=== PATIENT | male | born 1970 | race Caucasian/White ===

== ENCOUNTER 2017-11-11 08:29 | Inpatient (IN) | payer MEDICARE ==
[2017-11-11 09:06] VITALS: BMI 21.2
--- NOTE | 2017-11-11 10:57 | HP ---
COWS - Scale Resting Pulse: 0= [place] 80 or Below Sweatin= Chills/Flushing Restless Observation: 1= Difficult to Sit Still Pupil Size: 0= Normal to Room Light Bone or Joint Aches: 2= Severe Diffuse Aches Runny Nose/ Eye Tearin= Nasal Congestion GI Upset > 30mins: 1= Stomach Cramp Tremor Observation: 1= Tremor Gregory, Not Seen Yawning Observation: 1= 1-2x During Session Anxiety or Irritability: 2=Irritable/Anxious Goose Flesh Skin: 3=Piloerection COWS Score: 13 CIWA Score - CIWA Score Nausea/Vomitin-Mild Nausea/No Vomiting Muscle Tremors: 1-None Visible, but Gregory Anxiety: 3 Agitation: 2 Paroxysmal Sweats: 2 Orientation: 0-Oriented Tacttile Disturbances: 1-Very Mild Itch/Numbness Auditory Disturbances: 0-None Visual Disturbances: 0-None Headache: 2-Mild CIWA-Ar Total Score: 12 Admission ROS S - HPI Chief Complaint: Heroin/Etoh withdrawal symptoms. Allergies/Adverse Reactions: Allergies Allergy/AdvReac Type Severity Reaction Status Date / Time No Known Drug Allergies Allergy Unknown Verified 03/16/12 08:50 lactose AdvReac Verified 03/15/12 19:16 History of Present Illness: Patient presents for ETOH/Withdrawal symptoms. Patient started using heroin/ ETOH and Cocaine at age 12. Injects 10 bags of heroin/cocaine daily, drinks 12 beers daily. Last time patient used substances last night. Patient had one episode seizure 2 months. Patient has history of HIV, Hepatitis C which was treated with interferon and depression/anxiety. Denies Si/HI and suicide attempts. Exam Limitations: No Limitations - Ebola screening Have you traveled outside of the country in the last 21 days: No (N) Have you had contact with anyone from an Ebola affected area: No Have you been sick,other than usual withdrawal symptoms: No Do you have a fever: No - Review of Systems Constitutional: Chills, Changes in sleep, Unintentional Wgt. Loss EENT: reports: Nose Congestion Respiratory: reports: No Symptoms reported Cardiac: reports: No Symptoms Reported GI: reports: Diarrhea, Nausea, Poor Fluid Intake, Vomiting : reports: No Symptoms Reported Musculoskeletal: reports: No Symptoms Reported Integumentary: reports: Sweating Neuro: reports: Headache, Numbness, Seizure, Tremors Endocrine: reports: Unexplained Weight Loss Hematology: reports: No Symptoms Reported Psychiatric: reports: Orientated x3, Anxious, Depressed Patient History - Patient Medical History Hx Anemia: No (sec to [facility] rx) Hx Asthma: No Hx Chronic Obstructive Pulmonary Disease (COPD): No Hx Cancer: No Hx Cardiac Disorders: No Hx Congestive Heart Failure: No Hx Hypertension: No Hx Hypercholesterolemia: No Hx Pacemaker: No HX Cerebrovascular Accident: No Hx Seizures: Yes (seizure in 2004 and 2017) Hx Dementia: No Hx Diabetes: No Hx Gastrointestinal Disorders: No Hx Liver Disease: Yes (chronic hep b, treated for hep c) Hx Genitourinary Disorders: No Hx Sexually Transmitted Disorders: No Hx Renal Disease (ESRD): No Hx Thyroid Disease: Yes (hyperthyroidism) Hx Human Immunodeficiency Virus (HIV): Yes (noncompliant with medication) Hx Hepatitis C: Yes (completed 48 wks peginf/riba with svr) Hx Depression: Yes (anxiety) Hx Suicide Attempt: No Hx Bipolar Disorder: No Hx Schizophrenia: No - Patient Surgical History Past Surgical History: Yes Hx Neurologic Surgery: No Hx Cataract Extraction: No Hx Cardiac Surgery: No Hx Lung Surgery: No Hx Breast Surgery: No Hx Breast Biopsy: No Hx Abdominal Surgery: Yes (hernia repair 1996) Hx Appendectomy: No Hx Cholecystectomy: No Hx Genitourinary Surgery: No Hx Orthopedic Surgery: No Other Surgical History: corneal transplantation x 3,legally blind,post trauma Anesthesia Reaction: No - PPD History Previous Implant?: Yes Documented Results: Negative w/o proof Date: 12/08/12 PPD to be Administered?: Yes - Smoking Cessation Smoking history: Current every day smoker Have you smoked in the past 12 months: Yes Aproximately how many cigarettes per day: 20 Cigars Per Day: 0 Hx Chewing Tobacco Use: No Initiated information on smoking cessation: Yes 'Breaking Loose' booklet given: 11/11/17 - Substance & Tx. History Hx Alcohol Use: Yes Hx Substance Use: Yes Substance Use Type: Alcohol, Cocaine, Heroin Hx Substance Use Treatment: Yes ([facility] 2012) - Substances Abused Cocaine Route: Injection Frequency: Daily Amount used: 10 bags Age of first use: 12 Date of Last Use: 11/11/17 Heroin Route: Injection Frequency: Daily Amount used: 10 bags Age of first use: 12 Date of Last Use: 11/11/17 Alcohol Route: Oral Frequency: Daily Amount used: 12 beers Age of first use: 12 Date of Last Use: 11/11/17 Family Disease History - Family Disease History Family Disease History: Diabetes: Mother, Heart Disease: Mother, Other: Father ( AIDS, ) Admission Physical Exam [facility] - Vital Signs Vital Signs: Vital Signs - 24 hr 11/11/17 09:04 Temperature 96.7 F L Pulse Rate 69 Respiratory 18 Rate Blood Pressure 127/89 - Physical General Appearance: Yes: Disheveled, Thin, Tremorous, Sweating, Anxious HEENTM: Yes: Hearing grossly Normal, Normal ENT Inspection, Normocephalic, Normal Voice, JUDITH (Right eye legally blind, Left eye normal), Pharynx Normal Respiratory: Yes: Chest Non-Tender, Lungs Clear, Normal Breath Sounds, No Respiratory Distress, No Accessory Muscle Use Neck: Yes: No masses,lesions,Nodules, Supple, Trachea in good position Breast: Yes: Breast Exam Deferred Cardiology: Yes: Regular Rhythm, Regular Rate, S1, S2 Abdominal: Yes: Normal Bowel Sounds, Non Tender, Flat, Soft Genitourinary: Yes: Within Normal Limits Back: Yes: Muscle Spasm Extremities: Yes: Normal Range of Motion, Non-Tender, Tremors Neurological: Yes: glass smoother II-XII NML intact, Fully Oriented, Alert, Motor Strength 5/5, Depressed Affect Integumentary: Yes: Normal Color, Warm, Moist, Track [place] Lymphatic: Yes: Within Normal Limits - Diagnostic (1) Opioid dependence with withdrawal Current Visit: Yes Status: Acute (2) Cocaine dependence Current Visit: Yes Status: Acute Qualifiers: Substance use status: uncomplicated Qualified Code(s): F14.20 - Cocaine dependence, uncomplicated (3) Alcohol dependence with uncomplicated withdrawal Current Visit: Yes Status: Acute (4) Acquired immune deficiency syndrome (AIDS) Current Visit: Yes Status: Chronic (5) Hepatitis C carrier Current Visit: Yes Status: Chronic (6) Weight decreased Current Visit: Yes Status: Active (7) anxiety and depression Current Visit: Yes Status: Suspected Cleared for Admission [facility] - Detox or Rehab [facility] Level of Care: Medically Managed Detox Regimen/Protocol: Methadone/Librium [facility] Breath Alcohol Content Breath Alcohol Content: 0 Urine Drug Screen - Results Drug Screen Negative: No Urine Drug Screen Results: SEGUNDO-Cocaine, OPI-Opiates, TCA-Tricyclic Antidepress
[2017-11-11] MEDS ORDERED: MAGNESIUM HYDROX 2400MG/30ML ORAL SUSPENSION 30 ML CUP PO PRN (11:22)
[2017-11-11] MEDS ORDERED: MAGNESIUM CITRATE 300 ML BOTTLE PO PRN (11:22)
[2017-11-11] MEDS ORDERED: LOPERAMIDE HCL 2 MG CAPSULE PO PRN (11:22)
[2017-11-11] MEDS ORDERED: P-EPHED 60MG/TRIPROLIDI 2.5MG TABLET PO PRN (11:22)
[2017-11-11] MEDS ORDERED: MENTHOL/PHENOL 1 EACH UD MM PRN (11:22)
[2017-11-11] MEDS ORDERED: ACETAMINOPHEN 325 MG TABLET (FP) PO PRN (11:22)
[2017-11-11] MEDS ORDERED: guaiFENesin/D-METHORPHAN HB 10 ML UNIT-DOSE CUPS PO PRN (11:22)
[2017-11-11] MEDS ORDERED: NICOTINE POLACRILEX 2 MG GUM BUC PRN (11:22)
[2017-11-11] MEDS ORDERED: MAG HYDROX/AL HYDROX/SIMETH 30 ML UNIT-DOSE CUP PO PRN (11:22)
[2017-11-11] MEDS ORDERED: IBUPROFEN 400 MG TABLET (FP) PO PRN (11:22)
[2017-11-11] MEDS ORDERED: METHADONE HCL 10 MG TABLET (FOR DETOX USE ONLY) PO ONE ×2 (12:10→23:00)
[2017-11-11] MEDS ORDERED: chlordiazePOXIDE HCL 25 MG CAPSULE PO ONE (12:15)
--- NOTE | 2017-11-11 14:36 | CONSULT ---
[facility] Psychiatric Consult - Data Date of interview: 11/11/17 Admission source: [facility] Identifying data: Patient is a 48 year old single male, father of one, living with partner and is supported by SSI benefits. This is patient's first admission to detox. Pt. admitted for alcohol, cocaine, and opiate dependence. Substance Abuse History: - Smoking Cessation. Smoking history: Current every day smoker. Have you smoked in the past 12 months: Yes. Aproximately how many cigarettes per day: 20. Cigars Per Day: 0. Hx Chewing Tobacco Use: No. Initiated information on smoking cessation: Yes. 'Breaking Loose' booklet given : 11/11/17. - Substance & Tx. History. Hx Alcohol Use: Yes. Hx Substance Use : Yes. Substance Use Type: Alcohol, Cocaine, Heroin. Hx Substance Use Treatment: Yes ([facility] 2012). - Substances Abused. Cocaine. Route: Injection. Frequency: Daily. Amount used: 10 bags. Age of first use: 12. Date of Last Use: 11/11/17. Heroin. Route: Injection. Frequency: Daily. Amount used: 10 bags. Age of first use: 12. Date of Last Use: 11/11/17. Alcohol. Route: Oral. Frequency: Daily. Amount used: 12 beers. Age of first use: 12 Medical History: Seizures, Hep B, Hep C (treated) Psychiatric History: Patient denies h/o psychiatric hospitalization, and suicide attempt. Pt. reports OPD approximately 5 years ago at [place]. States he was prescribed trazodone but was noncompliant with the medication regime. Pt. c/o poor sleep and is requesting benadryl 50mg. Physical/Sexual Abuse/Trauma History: Denies. Mental Status Exam - Mental Status Exam Alert and Oriented to: Time, Place, Person Cognitive Function: Good Patient Appearance: Unkempt Mood: Hopeful Affect: Mood Congruent Patient Behavior: Cooperative Speech Pattern: Appropriate Voice Loudness: Normal Thought Process: Intact Thought Disorder: Not Present Hallucinations: Denies Suicidal Ideation: Denies Homicidal Ideation: Denies Insight/Judgement: Poor Sleep: Poorly Appetite: Fair Muscle strength/Tone: Normal Gait/Station: Normal Psychiatric Findings - Problem List (Irene 1, 2,3) (1) Insomnia Current Visit: Yes Status: Acute (2) Alcohol dependence with uncomplicated withdrawal Current Visit: Yes Status: Acute (3) Cocaine dependence Current Visit: Yes Status: Acute Qualifiers: Substance use status: uncomplicated Qualified Code(s): F14.20 - Cocaine dependence, uncomplicated (4) Opioid dependence with withdrawal Current Visit: Yes Status: Acute (5) Substance induced mood disorder Current Visit: Yes Status: Suspected - Initial Treatment Plan Initial Treatment Plan: Psychoeducation provided. Detoxification in progress. Benadryl 50mg qhs for insomnia. Benefits and side effects discussed. Verbal consent given. Will continue to monitor.
[2017-11-11] MEDS: chlordiazePOXIDE HCL 25 MG CAPSULE PO SCH ×2 (17:22→22:27)
[2017-11-11 17:52] LABS: URINE APPEARANCE CLEAR; URINE BILIRUBIN NEGATIVE (<2.0 mg/dL); URINE BLOOD NEGATIVE (NEGATIVE); URINE COLOR YELLOW; URINE GLUCOSE (UA) 1+ (NEGATIVE); URINE KETONE NEGATIVE (NEGATIVE); URINE LEUK ESTERASE NEGATIVE (NEGATIVE); URINE NITRITE NEGATIVE (NEGATIVE); URINE PROTEIN NEGATIVE (NEGATIVE); URINE UROBILINOGEN 4.0 E.U/dl mg/dL (0.2-1.0)
[2017-11-11] MEDS: hydrOXYzine PAMOATE 50 MG CAPSULE (FP) PO PRN (20:35)
[2017-11-11] MEDS: chlordiazePOXIDE HCL 25 MG CAPSULE PO PRN (20:35)
[2017-11-11] MEDS ORDERED: MELATONIN 5 MG TABLETS PO PRN (22:00)
[2017-11-11] MEDS ORDERED: diphenhydrAMINE HCL 25 MG CAPSULE (FP) PO ONE (22:02)
[2017-11-11] MEDS: THIAMINE HCL 100 MG TABLET (FP) PO SCH (22:26)
[2017-11-11] MEDS: diphenhydrAMINE HCL 50 MG CAPSULE PO PRN (22:27)
[2017-11-12] MEDS: chlordiazePOXIDE HCL 25 MG CAPSULE PO SCH ×4 (05:50→22:32)
[2017-11-12] MEDS ORDERED: METHADONE HCL 10 MG TABLET (FOR DETOX USE ONLY) PO SCH (10:00)
[2017-11-12] MEDS: PRENATAL VITAMINS W/ FOLIC ACID TABLET (FP) PO SCH (10:09)
[2017-11-12] MEDS: NICOTINE 21 MG/24 HOURS TOPICAL PATCH TD SCH (10:11)
--- NOTE | 2017-11-12 14:51 | EKG ---
Test Reason : Blood Pressure : / mmHG Vent. Rate : 063 BPM Atrial Rate : 063 BPM P-R Int : 188 ms QRS Dur : 100 ms QT Int : 430 ms P-R-T Axes : 060 074 071 degrees QTc Int : 440 ms NORMAL SINUS RHYTHM INCOMPLETE RIGHT BUNDLE BRANCH BLOCK BORDERLINE ECG WHEN COMPARED WITH ECG OF 22-OCT-2008 11:05, NO SIGNIFICANT CHANGE WAS FOUND Confirmed by MD Terrance, Clement ([id number]) on 11/12/2017 2:51:06 PM Referred By: Confirmed By:Clement Carlos MD
[2017-11-12] MEDS ORDERED: TRIMETHOBENZAMIDE HCL 200MG/2ML INJ IM PRN (15:05)
[2017-11-12] MEDS: chlordiazePOXIDE HCL 25 MG CAPSULE PO PRN (15:37)
--- NOTE | 2017-11-12 17:15 | PN ---
S CIWA - CIWA Score Nausea/Vomitin Muscle Tremors: 3 Anxiety: 4-Mod. Anxious/Guarded Agitation: 2 Paroxysmal Sweats: 3 Orientation: 0-Oriented Tacttile Disturbances: 2-Mild Itch/Numbness/Burn Auditory Disturbances: 0-None Visual Disturbances: 2-Mild Sensitivity Headache: 0-None Present CIWA-Ar Total Score: 19 BHS COWS - Scale Resting Pulse: 1= [place] 81-100 Sweatin= Chills/Flushing Restless Observation: 1= Difficult to Sit Still Pupil Size: 0= Normal to Room Light Bone or Joint Aches: 0= None Runny Nose/ Eye Tearin= Nasal Congestion GI Upset > 30mins: 2= Nausea/Diarrhea Tremor Observation of Outstretched Hands: 2= Slight Tremor Visible Yawning Observation: 1= 1-2x During Session Anxiety or Irritability: 2=Irritable/Anxious Goose Flesh Skin: 3=Piloerection COWS Score: 14 S Progress Note (SOAP) Subjective: Nausea, Diarrhea, Sweating, Tremors. Objective: PATIENT A & O X 3, OBSERVED AMBULATING ON UNIT. NO ACUTE DISTRESS. 11/12/17 17:13 Vital Signs Temperature 97.5 F L 11/12/17 14:14 Pulse Rate 83 11/12/17 14:14 Respiratory Rate 20 11/12/17 14:14 Blood Pressure 114/74 11/12/17 14:14 O2 Sat by Pulse Oximetry (%) Laboratory Tests 11/11/17 14:00 Urine Color Yellow Urine Appearance Clear Urine pH 7.0 D Ur Specific [place] 1.024 Urine Protein Negative Urine Glucose (UA) 1+ H Urine Ketones Negative Urine Blood Negative Urine Nitrite Negative Urine Bilirubin Negative Urine Urobilinogen 4.0 e.u/dl Ur Leukocyte Esterase Negative UA RESULTS NOTED. CBC, CMP, RPR RESULTS PENDING. 11/12/17 17:14 Assessment: 11/12/17 17:14 WITHDRAWAL SYMPTOMS. Plan: CONTINUE DETOX. INCREASE DAILY PO FLUID INTAKE. PRN FLEXERIL FOR BODY ACHES / MUSCLE SPASMS.
[2017-11-12] MEDS ORDERED: diphenhydrAMINE HCL 25 MG CAPSULE (FP) PO ONE (19:48)
[2017-11-12] MEDS: THIAMINE HCL 100 MG TABLET (FP) PO SCH (22:32)
[2017-11-12] MEDS: CYCLOBENZAPRINE HCL 10 MG TABLET (FP) PO PRN (22:32)
[2017-11-12] MEDS: diphenhydrAMINE HCL 50 MG CAPSULE PO PRN (22:33)
[2017-11-13] MEDS: hydrOXYzine PAMOATE 50 MG CAPSULE (FP) PO PRN (02:28)
[2017-11-13] MEDS: chlordiazePOXIDE HCL 25 MG CAPSULE PO PRN (02:28)
[2017-11-13] MEDS: chlordiazePOXIDE HCL 25 MG CAPSULE PO SCH ×2 (05:28→10:05)
[2017-11-13] MEDS: CYCLOBENZAPRINE HCL 10 MG TABLET (FP) PO PRN (05:28)
[2017-11-13 09:58] VITALS: BP 103/71; PULSE 80; TEMP 96.4
[2017-11-13] MEDS ORDERED: METHADONE HCL 5 MG TABLET (FOR DETOX USE ONLY) PO SCH (10:00)
[2017-11-13 10:01] LABS: HEMATOCRIT 38.1 % (35.4-49); HEMOGLOBIN 12.8 GM/dL (11.7-16.9); MCH 30.7 pg (25.7-33.7); MCHC 33.6 g/dl (32.0-35.9); MEAN CELL VOLUME 91.3 fl (80-96); MEAN PLT VOLUME 9.3 fl (7.5-11.1); PLATELET COUNT 261 K/MM3 (134-434); RBC 4.17 M/mm3 (4.00-5.60); RDW 15.5 % (11.9-15.9); WHITE BLOOD COUNT 7.7 K/mm3 (4.0-10.0)
[2017-11-13] MEDS: PRENATAL VITAMINS W/ FOLIC ACID TABLET (FP) PO SCH (10:05)
[2017-11-13] MEDS: NICOTINE 21 MG/24 HOURS TOPICAL PATCH TD SCH (10:06)
[2017-11-13 10:25] LABS: CHLORIDE 105 mmol/L (98-107); POTASSIUM 4.1 mmol/L (3.5-5.1); SODIUM 139 mmol/L (136-145)
[2017-11-13 10:46] LABS: ALBUMIN 2.9 g/dl (3.4-5.0); ALK PHOS 94 U/L (45-117); ANION GAP 7 (8-16); BILIRUBIN,TOTAL 0.2 mg/dL (0.2-1.0); BLOOD UREA NITROGEN 16 mg/dL (7-18); CALCIUM 8.5 mg/dL (8.5-10.1); CO2 27 mmol/L (21-32); CREATININE 0.7 mg/dL (0.7-1.3); GLUCOSE,RANDOM 83 mg/dL (74-106); SGOT/AST 23 U/L (15-37); SGPT/ALT 24 U/L (12-78); TOT PROT 7.4 g/dl (6.4-8.2)
--- NOTE | 2017-11-13 14:02 | PN ---
[facility] Progress Note Note: PT DECLINED TO CONTINUE WITH DETOX STATING "FAMILY ISSUES". ALL EFFORTS TO ENCOURAGE PAIENT TO FOCUS ON TREATMENT WAS UNSUCCESSFUL. ALERT O X 3. AMBULATING WITH STAEDY GAIT. NAD. PT REPORTS HIS PRIMARY CARE IS AT [facility] , [address] BUT HAS NOT FOLLOWED UP WITH TREATMENT FOR A LONG TIME. PT REMINDED TO FOLLOWUP WITH PRIMARY CARE NEEDED AT [facility]. Vital Signs 11/13/17 11/13/17 06:19 09:57 Temperature 96.1 F L 96.4 F L Pulse Rate 87 80 Respiratory 18 20 Rate Blood Pressure 123/72 103/71 Laboratory Tests 11/11/17 11/13/17 11/13/17 14:00 07:50 07:50 WBC 7.7 D RBC 4.17 Hgb 12.8 Hct 38.1 MCV 91.3 MCH 30.7 MCHC 33.6 RDW 15.5 D Plt Count 261 D MPV 9.3 Sodium 139 Potassium 4.1 Chloride 105 Carbon Dioxide 27 Anion Gap 7 L BUN 16 Creatinine 0.7 Creat Clearance w eGFR > 60 Random Glucose 83 D Calcium 8.5 Total Bilirubin 0.2 D AST 23 ALT 24 Alkaline Phosphatase 94 Total Protein 7.4 Albumin 2.9 L D Urine Color Yellow Urine Appearance Clear Urine pH 7.0 D Ur Specific [place] 1.024 Urine Protein Negative Urine Glucose (UA) 1+ H Urine Ketones Negative Urine Blood Negative Urine Nitrite Negative Urine Bilirubin Negative Urine Urobilinogen 4.0 e.u/dl Ur Leukocyte Esterase Negative RPR Titer 11/13/17 07:50 WBC RBC Hgb Hct MCV MCH MCHC RDW Plt Count MPV Sodium Potassium Chloride Carbon Dioxide Anion Gap BUN Creatinine Creat Clearance w eGFR Random Glucose Calcium Total Bilirubin AST ALT Alkaline Phosphatase Total Protein Albumin Urine Color Urine Appearance Urine pH Ur Specific [place] Urine Protein Urine Glucose (UA) Urine Ketones Urine Blood Urine Nitrite Urine Bilirubin Urine Urobilinogen Ur Leukocyte Esterase RPR Titer Nonreactive PT SIGNED OUT AMA.
--- NOTE | 2017-11-13 14:05 | DS ---
[facility] Detox Discharge Summary Admission Date: 11/11/17 Discharge Date: 11/13/17 - History Present History: Alcohol Dependence, Cocaine Dependence Additional Comments: PT DECLINED TO CONTINUE DETOX. PT REMINDED TO GO BACK TO HIS PRIMARY [facility] AT [address] [place] [address] FOR MEDICAL MANAGEMENT OF HIS COMORBID CONDITIONS NEEDED. Pertinent Past History: PLEASE SEE DX BELOW - Physical Exam Results Vital Signs: Vital Signs Temperature 96.4 F L 11/13/17 09:57 Pulse Rate 80 11/13/17 09:57 Respiratory Rate 20 11/13/17 09:57 Blood Pressure 103/71 11/13/17 09:57 O2 Sat by Pulse Oximetry (%) Pertinent Admission Physical Exam Findings: WITHDRAWAL SX Laboratory Tests 11/11/17 11/13/17 11/13/17 14:00 07:50 07:50 WBC 7.7 D RBC 4.17 Hgb 12.8 Hct 38.1 MCV 91.3 MCH 30.7 MCHC 33.6 RDW 15.5 D Plt Count 261 D MPV 9.3 Sodium 139 Potassium 4.1 Chloride 105 Carbon Dioxide 27 Anion Gap 7 L BUN 16 Creatinine 0.7 Creat Clearance w eGFR > 60 Random Glucose 83 D Calcium 8.5 Total Bilirubin 0.2 D AST 23 ALT 24 Alkaline Phosphatase 94 Total Protein 7.4 Albumin 2.9 L D Urine Color Yellow Urine Appearance Clear Urine pH 7.0 D Ur Specific [place] 1.024 Urine Protein Negative Urine Glucose (UA) 1+ H Urine Ketones Negative Urine Blood Negative Urine Nitrite Negative Urine Bilirubin Negative Urine Urobilinogen 4.0 e.u/dl Ur Leukocyte Esterase Negative RPR Titer 11/13/17 07:50 WBC RBC Hgb Hct MCV MCH MCHC RDW Plt Count MPV Sodium Potassium Chloride Carbon Dioxide Anion Gap BUN Creatinine Creat Clearance w eGFR Random Glucose Calcium Total Bilirubin AST ALT Alkaline Phosphatase Total Protein Albumin Urine Color Urine Appearance Urine pH Ur Specific [place] Urine Protein Urine Glucose (UA) Urine Ketones Urine Blood Urine Nitrite Urine Bilirubin Urine Urobilinogen Ur Leukocyte Esterase RPR Titer Nonreactive - Treatment Hospital Course: Discharged Condition Good - Medication Discharge Medications: Ambulatory Orders NK [No Known Home Medication] 11/11/17 - AMA Did Patient Leave Against Medical Advice: Yes (AMA)
[2017-11-13] MEDS ORDERED: chlordiazePOXIDE 5 MG CAPSULE PO SCH (17:00)
--- NOTE | 2017-11-14 09:06 | EKG ---
Test Reason : Blood Pressure : / mmHG Vent. Rate : 072 BPM Atrial Rate : 072 BPM P-R Int : 186 ms QRS Dur : 102 ms QT Int : 390 ms P-R-T Axes : 081 077 073 degrees QTc Int : 427 ms NORMAL SINUS RHYTHM INCOMPLETE RIGHT BUNDLE BRANCH BLOCK BORDERLINE ECG WHEN COMPARED WITH ECG OF 11-NOV-2017 12:20, NO SIGNIFICANT CHANGE WAS FOUND Confirmed by MALIHA OTOOLE MD ([id number]) on 11/14/2017 9:06:15 AM Referred By: Confirmed By:MALIHA OTOOLE MD
[2017-11-14] MEDS ORDERED: chlordiazePOXIDE HCL 10 MG CAPSULE PO SCH (17:00)
[2017-11-15] MEDS ORDERED: METHADONE HCL 10 MG TABLET (FOR DETOX USE ONLY) PO SCH (10:00)
[2017-11-16] MEDS ORDERED: METHADONE HCL 5 MG TABLET (FOR DETOX USE ONLY) PO SCH (06:00)
== END 2017-11-13 11:00 | disposition left against medical advice (07) | DRG 770 ==
LOC: YASAS 08:29 → Y3N 12:00
PROVIDERS: ADMIT Surgery; ATTEND Surgery
PROC: HZ2ZZZZ Detoxification Services for Substance Abuse Treatment (ICD-10-PCS; principal; 2017-11-11)
DX: F11.23 Opioid dependence with withdrawal (principal); F10.230 Alcohol dependence with withdrawal, uncomplicated; F14.20 Cocaine dependence, uncomplicated; F17.210 Nicotine dependence, cigarettes, uncomplicated; F41.8 Other specified anxiety disorders; B20 Human immunodeficiency virus [HIV] disease; B18.2 Chronic viral hepatitis C; B18.1 Chronic viral hepatitis B without delta-agent; H54.8 Legal blindness, as defined in USA; G47.00 Insomnia, unspecified; E05.90 Thyrotoxicosis, unspecified without thyrotoxic crisis or storm; Z91.14 Patient's other noncompliance with medication regimen; Z91.011 Allergy to milk products; Z86.69 Personal history of other diseases of the nervous system and sense organs; Z87.898 Personal history of other specified conditions
CPT/HCPCS: 36415; 80053; 81003; 85027; 86593; 93005; 93010

== ENCOUNTER 2017-11-25 12:16 | Inpatient (IN) | payer OTHER ==
[2017-11-25 14:05] VITALS: BMI 19.8
--- NOTE | 2017-11-25 15:26 | HP ---
Admission [facility] Chief Complaint: heroin and cocaine dependence rehab Allergies/Adverse Reactions: Allergies Allergy/AdvReac Type Severity Reaction Status Date / Time No Known Drug Allergies Allergy Severe diarrhea Verified 11/25/17 15:06 lactose AdvReac Verified 11/25/17 15:06 History of Present Illness: 47 yo male with hx nicotine, IV heroin, cocaine dependence is here for rehab, patient was referred by the [facility]. Last detox [facility] 11/11/17 -11/13/17 left AMA. As per patient he was admitted to [facility] 11/16/17 -11/23/17 for depression. Patient reports he was was discharged on suboxone 16mg qd x 7 days , last dose 11/24/17, as per patient he started using heroin yesterday. Patient is interested in a MMTP. PMHX: HIV +, asthma, insomnia, depression and schizophrenia. Denies suicidal / homicidal ideation or hx of suicide attempt. Reports longest period of sobriety 5 years. Reference #: [id number] Others' Prescriptions Patient Name: Clement Mendenhall Date: 1970 Address: [address] [place] [address] Sex: Male Rx Written Rx Dispensed Drug Quantity Days Supply Prescriber Name 11/23/2017 11/23/2017 suboxone 8 mg-2 mg sl film 14 7 Romeo Rasmussen M () Exam Limitations: No Limitations - Ebola screening Have you traveled outside of the country in the last 21 days: No (N) Have you had contact with anyone from an Ebola affected area: No Have you been sick,other than usual withdrawal symptoms: No Do you have a fever: No - Review of Systems Constitutional: Loss of Appetite, Changes in sleep, Unintentional Wgt. Loss EENT: reports: Other (right eye blindness) Respiratory: reports: No Symptoms reported Cardiac: reports: No Symptoms Reported GI: reports: Diarrhea, Nausea : reports: No Symptoms Reported Musculoskeletal: reports: Joint Pain Integumentary: reports: No Symptoms Reported Neuro: reports: No Symptoms reported Endocrine: reports: Increased Thirst Hematology: reports: See HPI Psychiatric: reports: Orientated x3, Anxious Other Systems: Reviewed and Negative Patient History - Patient Medical History Hx Anemia: No (sec to [facility] rx) Hx Asthma: No Hx Chronic Obstructive Pulmonary Disease (COPD): Yes Hx Cancer: No Hx Cardiac Disorders: No Hx Congestive Heart Failure: No Hx Hypertension: No Hx Hypercholesterolemia: No Hx Pacemaker: No HX Cerebrovascular Accident: No Hx Seizures: No Hx Dementia: No Hx Diabetes: No Hx Gastrointestinal Disorders: No Hx Liver Disease: Yes (?chronic hep b, treated for hep c) Hx Genitourinary Disorders: No Hx Sexually Transmitted Disorders: No Hx Renal Disease (ESRD): No Hx Thyroid Disease: Yes (hyperthyroidism) Hx Human Immunodeficiency Virus (HIV): Yes Hx Hepatitis C: Yes (completed 48 wks peginf/riba with svr) Hx Depression: Yes Hx Suicide Attempt: No Hx Bipolar Disorder: No Hx Schizophrenia: Yes - Patient Surgical History Past Surgical History: Yes Hx Neurologic Surgery: No Hx Cataract Extraction: No Hx Cardiac Surgery: No Hx Lung Surgery: No Hx Breast Surgery: No Hx Breast Biopsy: No Hx Abdominal Surgery: Yes (hernia repair 1996) Hx Appendectomy: No Hx Cholecystectomy: No Hx Genitourinary Surgery: No Hx Orthopedic Surgery: No Other Surgical History: corneal transplantation x 3, legally blind,post trauma Anesthesia Reaction: No - PPD History Previous Implant?: Yes Documented Results: Negative w/proof Date: 11/13/17 PPD to be Administered?: No - Smoking Cessation Smoking history: Current every day smoker (1 ppd) Have you smoked in the past 12 months: Yes Aproximately how many cigarettes per day: 20 If you are a former smoker, when did you quit?: Approximately 2 years ago. Cigars Per Day: 0 Hx Chewing Tobacco Use: No Initiated information on smoking cessation: Yes 'Breaking Loose' booklet given: 11/25/17 - Substance & Tx. History Hx Alcohol Use: No Hx Substance Use: Yes Substance Use Type: Cocaine, Heroin Hx Substance Use Treatment: Yes ([facility] 11/11/17 -11/13/17 left AMA) - Substances Abused Heroin Route: Injection Frequency: 1-2 times per week Amount used: 2 bags Age of first use: 24 Date of Last Use: 11/24/17 Cocaine Route: Injection Frequency: 1-2 times per week Amount used: $40 Age of first use: 19 Date of Last Use: 11/24/17 Family Disease History - Family Disease History Family Disease History: Diabetes: Mother (a&w with stable asthma, htn, dm), Heart Disease: Mother, Other: Grandparent (mat side dec'd older age; pat side unk), Father (AIDS, age ~50s), Mother, Brother (5 - 1 with aids, 1 with developmental delay, others unk), Sister (2 - 1 dec'd from liver disease), Son (1 - a&w hiv neg), Daughter (0) Admission Physical Exam S - Vital Signs Vital Signs: Vital Signs - 24 hr 11/25/17 14:03 Temperature 97.9 F Pulse Rate 78 Respiratory 20 Rate Blood Pressure 122/70 - Physical General Appearance: Yes: Disheveled, Thin, Anxious HEENTM: Yes: EOMI, Hearing grossly Normal, Normal ENT Inspection, Normocephalic , Normal Voice, JUDITH, Pharynx Normal, Tm's normal, Other (right eye blindness) Respiratory: Yes: Chest Non-Tender, Lungs Clear, Normal Breath Sounds, No Respiratory Distress, No Accessory Muscle Use Neck: Yes: Within Normal Limits Breast: Yes: Breast Exam Deferred Cardiology: Yes: Regular Rhythm, Regular Rate Abdominal: Yes: Normal Bowel Sounds, Non Tender, Flat Genitourinary: Yes: Within Normal Limits Back: Yes: Normal Inspection Musculoskeletal: Yes: full range of Motion, Gait Steady, Pelvis Stable Extremities: Yes: Normal Capillary Refill, Normal Inspection, Normal Range of Motion 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 (4) Hepatitis C virus Current Visit: Yes Status: Chronic Qualifiers: Viral hepatitis chronicity: unspecified Comment: tx'd previously with svr, he is agreeable to repeat vl for possible re- expsoure. 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 (8) Insomnia Current Visit: Yes Status: Acute BHS Breath Alcohol Content Breath Alcohol Content: 0 Urine Drug Screen - Results Drug Screen Negative: No Urine Drug Screen Results: SEGUNDO-Cocaine, OPI-Opiates, BZO-Benzodiazepines, TCA- Tricyclic Antidepress Inpatient Rehab Admission - Initial Determination Are CD services needed?: Yes Free of communicable disease: Yes Not in need of hospitalization: Yes - Rehab Admission Criteria Previous failed treatment: Yes Poor recovery environment: Yes Comorbidities: Yes Lacks judgement: Yes Patient is meeting Inpatient Rehab admission criteria:: Yes
[2017-11-25] MEDS ORDERED: ALBUTEROL SO4 0.083% IH SOL 2.5 MG/3 ML VIAL.NEB. NEB PRN (15:35)
[2017-11-25] MEDS ORDERED: ALBUTEROL SO4 8 GM HFA INHALER IH PRN (15:35)
[2017-11-25] MEDS ORDERED: MAGNESIUM HYDROX 2400MG/30ML ORAL SUSPENSION 30 ML CUP PO PRN (15:37)
[2017-11-25] MEDS ORDERED: guaiFENesin/D-METHORPHAN HB 10 ML UNIT-DOSE CUPS PO PRN (15:37)
[2017-11-25] MEDS ORDERED: MENTHOL/PHENOL 1 EACH UD MM PRN (15:37)
[2017-11-25] MEDS ORDERED: P-EPHED 60MG/TRIPROLIDI 2.5MG TABLET PO PRN (15:37)
[2017-11-25] MEDS ORDERED: ACETAMINOPHEN 325 MG TABLET (FP) PO PRN (15:37)
[2017-11-25] MEDS ORDERED: MAGNESIUM CITRATE 300 ML BOTTLE PO PRN (15:37)
--- NOTE | 2017-11-25 20:06 | PN ---
[facility] Progress Note Note: Patient was discharged from [facility] on Suboxone 16 mg daily/ Patient states did not take Suboxone for past 2 days and is currently having nausea, diarrhea, mild bone pain and feeling very anxious. Patient admits to using heroin early this am. [employer] Data: Patient Name: Clement Mendenhall Date: 1970 Address: [address] [place] [address] Sex: Male 11/23/2017 11/23/2017 suboxone 8 mg-2 mg sl film 14 7 Romeo Rasmussen M () Assess: (+) rhinorrhea, (L) pupil 4 mm; (Blind in (R) eye), having difficulty sitting still. Hyperactive bowel sounds. Abd soft and non-tender. URINE DRUG SCREEN RESULTS Drug Screen Negative No Drug Screen Negative No Urine Drug Screen Results SEGUNDO-Cocaine,OPI-Opiates,BZO-Benzodiazepines,TCA- Tricyclic Antidepress Urine Drug Screen Results SEGUNDO-Cocaine,OPI-Opiates,BZO-Benzodiazepines,TCA- Tricyclic Antidepress Last Vital Signs Temp Pulse Resp BP Pulse Ox 97.9 F 78 20 122/70 11/25/17 14:03 11/25/17 14:03 11/25/17 14:03 11/25/17 14:03 Plan: Will give buprenorphine/naloxone 8mg/2mg SL film now x 1 dose and the start 8mg/2mg SL film x 2 doses in am and daily. Discussed the importance of ensuring a provider post-discharge for maintenance. Patient states arrangement were made for Suboxone to be continued by his PCP and he will discuss this w/ counselor to ensure appropriate f/u is arranged prior to discharge.
[2017-11-25] MEDS ORDERED: BUPRENORPHINE/NALOXONE 8 MG/2 MG FILM PACKET SL ONE ×2 (21:00)
[2017-11-25] MEDS: THIAMINE HCL 100 MG TABLET (FP) PO SCH (21:10)
[2017-11-25] MEDS: CYCLOBENZAPRINE HCL 5 MG TABLET PO SCH (21:10)
[2017-11-25] MEDS: MELATONIN 5 MG TABLETS PO PRN (21:11)
[2017-11-26] MEDS: hydrOXYzine PAMOATE 50 MG CAPSULE (FP) PO PRN ×2 (01:47→23:56)
[2017-11-26] MEDS: CYCLOBENZAPRINE HCL 5 MG TABLET PO SCH ×3 (07:07→21:03)
[2017-11-26] MEDS: NICOTINE 21 MG/24 HOURS TOPICAL PATCH TD SCH (09:40)
[2017-11-26] MEDS: PRENATAL VITAMINS W/ FOLIC ACID TABLET (FP) PO SCH (09:40)
[2017-11-26] MEDS: BUPRENORPHINE/NALOXONE 8 MG/2 MG FILM PACKET SL SCH (09:41)
[2017-11-26 10:30] LABS: HEMATOCRIT 36.6 % (35.4-49); HEMOGLOBIN 12.2 GM/dL (11.7-16.9); MCH 31.1 pg (25.7-33.7); MCHC 33.5 g/dl (32.0-35.9); MEAN CELL VOLUME 92.9 fl (80-96); MEAN PLT VOLUME 8.5 fl (7.5-11.1); PLATELET COUNT 228 K/MM3 (134-434); RBC 3.94 M/mm3 (4.00-5.60); RDW 15.6 % (11.9-15.9); WHITE BLOOD COUNT 7.5 K/mm3 (4.0-10.0)
[2017-11-26 10:34] LABS: URINE APPEARANCE TURBID; URINE BILIRUBIN NEGATIVE (<2.0 mg/dL); URINE COLOR YELLOW; URINE GLUCOSE (UA) NEGATIVE (NEGATIVE); URINE KETONE NEGATIVE (NEGATIVE); URINE LEUK ESTERASE NEGATIVE (NEGATIVE); URINE NITRITE NEGATIVE (NEGATIVE); URINE PROTEIN NEGATIVE (NEGATIVE); URINE UROBILINOGEN NEGATIVE mg/dL (0.2-1.0)
[2017-11-26 10:49] LABS: CHLORIDE 104 mmol/L (98-107); POTASSIUM 4.5 mmol/L (3.5-5.1); SODIUM 139 mmol/L (136-145)
[2017-11-26 11:06] LABS: ALBUMIN 3.2 g/dl (3.4-5.0); ALK PHOS 91 U/L (45-117); ANION GAP 7 (8-16); BILIRUBIN,TOTAL 0.5 mg/dL (0.2-1.0); BLOOD UREA NITROGEN 31 mg/dL (7-18); CALCIUM 8.1 mg/dL (8.5-10.1); CO2 28 mmol/L (21-32); CREATININE 0.7 mg/dL (0.7-1.3); GLUCOSE,RANDOM 66 mg/dL (74-106); SGOT/AST 42 U/L (15-37); SGPT/ALT 39 U/L (12-78); TOT PROT 8.1 g/dl (6.4-8.2)
[2017-11-26] MEDS: THIAMINE HCL 100 MG TABLET (FP) PO SCH (21:03)
[2017-11-26] MEDS: MELATONIN 5 MG TABLETS PO PRN (21:03)
[2017-11-26] MEDS: LOPERAMIDE HCL 2 MG CAPSULE PO PRN (21:23)
[2017-11-27] MEDS: CYCLOBENZAPRINE HCL 5 MG TABLET PO SCH ×2 (06:45→14:41)
[2017-11-27] MEDS: PRENATAL VITAMINS W/ FOLIC ACID TABLET (FP) PO SCH (09:57)
[2017-11-27] MEDS: BUPRENORPHINE/NALOXONE 8 MG/2 MG FILM PACKET SL SCH (09:58)
[2017-11-27] MEDS: NICOTINE 21 MG/24 HOURS TOPICAL PATCH TD SCH (09:58)
[2017-11-28] MEDS: CYCLOBENZAPRINE HCL 5 MG TABLET PO SCH ×4 (00:19→21:22)
[2017-11-28] MEDS: THIAMINE HCL 100 MG TABLET (FP) PO SCH ×2 (00:19→21:22)
[2017-11-28] MEDS: BUPRENORPHINE/NALOXONE 8 MG/2 MG FILM PACKET SL SCH (09:42)
[2017-11-28] MEDS: PRENATAL VITAMINS W/ FOLIC ACID TABLET (FP) PO SCH (09:42)
[2017-11-28] MEDS: NICOTINE 21 MG/24 HOURS TOPICAL PATCH TD SCH (09:43)
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
--- NOTE | 2017-11-28 11:55 | HP ---
Psychiatrist Admission - Data Date of interview: 11/28/17 Admission source: [facility] Identifying data: This is the first admission to [address] [place] [address] for this 47 years old Medical History: Significant for HIV+ Vital Signs: Vital Signs - 24 hr 11/28/17 06:30 Temperature 98.1 F Pulse Rate 74 Respiratory 18 Rate Blood Pressure 104/59 Allergies/Adverse Reactions: Allergies Allergy/AdvReac Type Severity Reaction Status Date / Time No Known Drug Allergies Allergy Severe diarrhea Verified 11/25/17 15:06 lactose AdvReac Verified 11/25/17 15:06 Psychiatric Findings - Problem List ([place] 1, 2,3) (1) Cocaine dependence Current Visit: Yes Status: Chronic Qualifiers: Substance use status: uncomplicated Qualified Code(s): F14.20 - Cocaine dependence, uncomplicated Comment: as above, cont to discuss tx and f/u. (2) HIV antibody positive Current Visit: Yes Status: Chronic (3) Hepatitis C virus Current Visit: Yes Status: Chronic Qualifiers: Viral hepatitis chronicity: unspecified Comment: tx'd previously with svr, he is agreeable to repeat vl for possible re- expsoure. 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 - Initial Treatment Plan Initial Treatment Plan: Will monitor progress.
[2017-11-28] MEDS: SUVOREXANT 10 MG TABLET PO PRN (21:22)
[2017-11-28] MEDS: hydrOXYzine PAMOATE 50 MG CAPSULE (FP) PO PRN (21:23)
--- NOTE | 2017-11-28 22:14 | EKG ---
Test Reason : Blood Pressure : / mmHG Vent. Rate : 061 BPM Atrial Rate : 061 BPM P-R Int : 220 ms QRS Dur : 114 ms QT Int : 436 ms P-R-T Axes : 081 079 070 degrees QTc Int : 438 ms SINUS RHYTHM WITH 1ST DEGREE A-V BLOCK INCOMPLETE RIGHT BUNDLE BRANCH BLOCK BORDERLINE ECG WHEN COMPARED WITH ECG OF 12-NOV-2017 07:53, ME INTERVAL HAS INCREASED Confirmed by TREY OBANDO, JOSE ANGEL ([id number]) on 11/28/2017 10:14:16 PM Referred By: Confirmed By:JOSE ANGEL YANG MD
[2017-11-29] MEDS: CYCLOBENZAPRINE HCL 5 MG TABLET PO SCH ×3 (06:33→21:40)
[2017-11-29] MEDS: NICOTINE 21 MG/24 HOURS TOPICAL PATCH TD SCH (10:11)
[2017-11-29] MEDS: BUPRENORPHINE/NALOXONE 8 MG/2 MG FILM PACKET SL SCH (10:11)
[2017-11-29] MEDS: PRENATAL VITAMINS W/ FOLIC ACID TABLET (FP) PO SCH (10:11)
--- NOTE | 2017-11-29 13:13 | PN ---
[facility] Progress Note Note: Provider at [facility] requested call regarding patient meds. Call made. No answer. Voicemail left.
[2017-11-29] MEDS: LOPERAMIDE HCL 2 MG CAPSULE PO PRN (15:56)
[2017-11-29] MEDS: THIAMINE HCL 100 MG TABLET (FP) PO SCH (21:40)
[2017-11-29] MEDS: SUVOREXANT 10 MG TABLET PO PRN (21:42)
[2017-11-29] MEDS: MELATONIN 5 MG TABLETS PO PRN (23:58)
[2017-11-30] MEDS: CYCLOBENZAPRINE HCL 5 MG TABLET PO SCH ×3 (06:32→21:18)
[2017-11-30] MEDS: BUPRENORPHINE/NALOXONE 8 MG/2 MG FILM PACKET SL SCH (10:30)
[2017-11-30] MEDS: PRENATAL VITAMINS W/ FOLIC ACID TABLET (FP) PO SCH (10:30)
[2017-11-30] MEDS: NICOTINE 21 MG/24 HOURS TOPICAL PATCH TD SCH (10:32)
[2017-11-30] MEDS: EMTRICITABINE/TENOFOV ALAFENAM (DESCOVY) TABLET PO SCH (14:46)
[2017-11-30] MEDS: DOLUTEGRAVIR SODIUM 50 MG TABLET PO SCH (14:47)
[2017-11-30] MEDS: MAG HYDROX/AL HYDROX/SIMETH 30 ML UNIT-DOSE CUP PO PRN (17:20)
[2017-11-30] MEDS: THIAMINE HCL 100 MG TABLET (FP) PO SCH (21:18)
[2017-11-30] MEDS: SUVOREXANT 10 MG TABLET PO PRN (21:18)
[2017-12-01] MEDS: hydrOXYzine PAMOATE 50 MG CAPSULE (FP) PO PRN (00:44)
[2017-12-01] MEDS: MAG HYDROX/AL HYDROX/SIMETH 30 ML UNIT-DOSE CUP PO PRN (02:05)
[2017-12-01] MEDS: CYCLOBENZAPRINE HCL 5 MG TABLET PO SCH ×3 (07:05→21:22)
[2017-12-01] MEDS: EMTRICITABINE/TENOFOV ALAFENAM (DESCOVY) TABLET PO SCH (10:20)
[2017-12-01] MEDS: PRENATAL VITAMINS W/ FOLIC ACID TABLET (FP) PO SCH (10:20)
[2017-12-01] MEDS: NICOTINE 21 MG/24 HOURS TOPICAL PATCH TD SCH (10:20)
[2017-12-01] MEDS: DOLUTEGRAVIR SODIUM 50 MG TABLET PO SCH (10:20)
[2017-12-01] MEDS: BUPRENORPHINE/NALOXONE 8 MG/2 MG FILM PACKET SL SCH (10:20)
[2017-12-01] MEDS: NICOTINE POLACRILEX 2 MG GUM BC PRN (10:21)
[2017-12-01] MEDS: THIAMINE HCL 100 MG TABLET (FP) PO SCH (21:22)
[2017-12-01] MEDS: SUVOREXANT 10 MG TABLET PO PRN (21:24)
[2017-12-02] MEDS: hydrOXYzine PAMOATE 50 MG CAPSULE (FP) PO PRN ×3 (01:16→21:29)
[2017-12-02] MEDS: CYCLOBENZAPRINE HCL 5 MG TABLET PO SCH ×3 (06:08→21:28)
[2017-12-02] MEDS: EMTRICITABINE/TENOFOV ALAFENAM (DESCOVY) TABLET PO SCH (10:12)
[2017-12-02] MEDS: DOLUTEGRAVIR SODIUM 50 MG TABLET PO SCH (10:12)
[2017-12-02] MEDS: NICOTINE 21 MG/24 HOURS TOPICAL PATCH TD SCH (10:13)
[2017-12-02] MEDS: PRENATAL VITAMINS W/ FOLIC ACID TABLET (FP) PO SCH (10:13)
[2017-12-02] MEDS: BUPRENORPHINE/NALOXONE 8 MG/2 MG FILM PACKET SL SCH (10:14)
[2017-12-02] MEDS: NICOTINE POLACRILEX 2 MG GUM BC PRN ×2 (10:16→14:19)
[2017-12-02] MEDS: LOPERAMIDE HCL 2 MG CAPSULE PO PRN (15:56)
[2017-12-02] MEDS: THIAMINE HCL 100 MG TABLET (FP) PO SCH (21:28)
[2017-12-02] MEDS: MELATONIN 5 MG TABLETS PO PRN (21:28)
[2017-12-03] MEDS: CYCLOBENZAPRINE HCL 5 MG TABLET PO SCH ×3 (06:15→21:33)
[2017-12-03] MEDS: hydrOXYzine PAMOATE 50 MG CAPSULE (FP) PO PRN ×4 (06:16→21:34)
[2017-12-03] MEDS: DOLUTEGRAVIR SODIUM 50 MG TABLET PO SCH (10:22)
[2017-12-03] MEDS: BUPRENORPHINE/NALOXONE 8 MG/2 MG FILM PACKET SL SCH (10:22)
[2017-12-03] MEDS: EMTRICITABINE/TENOFOV ALAFENAM (DESCOVY) TABLET PO SCH (10:22)
[2017-12-03] MEDS: NICOTINE 21 MG/24 HOURS TOPICAL PATCH TD SCH (10:23)
[2017-12-03] MEDS: PRENATAL VITAMINS W/ FOLIC ACID TABLET (FP) PO SCH (10:23)
[2017-12-03] MEDS: NICOTINE POLACRILEX 2 MG GUM BC PRN (10:24)
[2017-12-03] MEDS: THIAMINE HCL 100 MG TABLET (FP) PO SCH (21:33)
[2017-12-03] MEDS: MELATONIN 5 MG TABLETS PO PRN (21:34)
[2017-12-04] MEDS: CYCLOBENZAPRINE HCL 5 MG TABLET PO SCH ×3 (06:09→21:19)
[2017-12-04] MEDS: hydrOXYzine PAMOATE 50 MG CAPSULE (FP) PO PRN ×3 (06:11→21:19)
[2017-12-04] MEDS: LOPERAMIDE HCL 2 MG CAPSULE PO PRN ×2 (07:12→19:08)
[2017-12-04] MEDS: BUPRENORPHINE/NALOXONE 8 MG/2 MG FILM PACKET SL SCH (10:30)
[2017-12-04] MEDS: EMTRICITABINE/TENOFOV ALAFENAM (DESCOVY) TABLET PO SCH (10:30)
[2017-12-04] MEDS: NICOTINE 21 MG/24 HOURS TOPICAL PATCH TD SCH (10:30)
[2017-12-04] MEDS: PRENATAL VITAMINS W/ FOLIC ACID TABLET (FP) PO SCH (10:30)
[2017-12-04] MEDS: DOLUTEGRAVIR SODIUM 50 MG TABLET PO SCH (10:30)
[2017-12-04] MEDS: THIAMINE HCL 100 MG TABLET (FP) PO SCH (21:19)
[2017-12-04] MEDS: MELATONIN 5 MG TABLETS PO PRN (21:19)
[2017-12-05] MEDS: IBUPROFEN 400 MG TABLET (FP) PO PRN (00:41)
[2017-12-05] MEDS: hydrOXYzine PAMOATE 50 MG CAPSULE (FP) PO PRN ×4 (02:37→21:28)
[2017-12-05] MEDS: CYCLOBENZAPRINE HCL 5 MG TABLET PO SCH ×3 (06:46→21:28)
--- NOTE | 2017-12-05 11:09 | PN ---
[facility] Progress Note Note: PATIENT PRESENTS WITH C/O EPISODIC PALPITATIONS, SPONTANEOUS WHICH LAST 1-2 MINUTES AND ACCOMPANIED WITH MILD SOB. PATIENT DENIES CHEST PAIN AND DIZZINESS. Laboratory Tests 11/26/17 11/26/17 11/26/17 08:00 08:00 08:00 WBC 7.5 RBC 3.94 L Hgb 12.2 Hct 36.6 MCV 92.9 MCH 31.1 MCHC 33.5 RDW 15.6 Plt Count 228 D MPV 8.5 Sodium 139 Potassium 4.5 Chloride 104 Carbon Dioxide 28 Anion Gap 7 L BUN 31 H Creatinine 0.7 Creat Clearance w eGFR > 60 Random Glucose 66 L D Calcium 8.1 L Total Bilirubin 0.5 AST 42 H ALT 39 Alkaline Phosphatase 91 D Total Protein 8.1 Albumin 3.2 L Urine Color Urine Appearance Urine pH Ur Specific [place] Urine Protein Urine Glucose (UA) Urine Ketones Urine Blood Urine Nitrite Urine Bilirubin Urine Urobilinogen Ur Leukocyte Esterase RPR Titer Nonreactive 11/26/17 08:52 WBC RBC Hgb Hct MCV MCH MCHC RDW Plt Count MPV Sodium Potassium Chloride Carbon Dioxide Anion Gap BUN Creatinine Creat Clearance w eGFR Random Glucose Calcium Total Bilirubin AST ALT Alkaline Phosphatase Total Protein Albumin Urine Color Yellow Urine Appearance Turbid Urine pH 5.0 Ur Specific [place] 1.029 Urine Protein Negative Urine Glucose (UA) Negative Urine Ketones Negative Urine Blood Negative Urine Nitrite Negative Urine Bilirubin Negative Urine Urobilinogen Negative Ur Leukocyte Esterase Negative RPR Titer Vital Signs Temperature 97.7 F 12/05/17 06:00 Pulse Rate 80 12/05/17 06:00 Respiratory Rate 18 12/05/17 06:00 Blood Pressure 100/73 12/05/17 06:00 O2 Sat by Pulse Oximetry (%) PE: GENERAL: ALERT AND ORIENTED X 3. IN NAD. AMBULATORY AD TORI SKIN: WARM AND DRY CAR: S1S2 RESP: CTA BL O2 SATS 99% EXT: FULL ROM, NO EDEMA A/P: PALPITATIONS WILL CHECK EKG TODAY CONTINUE CURRENT POC CONTINUE TO MONITOR CLINICALLY
[2017-12-05] MEDS: PRENATAL VITAMINS W/ FOLIC ACID TABLET (FP) PO SCH (11:12)
[2017-12-05] MEDS: DOLUTEGRAVIR SODIUM 50 MG TABLET PO SCH (11:13)
[2017-12-05] MEDS: EMTRICITABINE/TENOFOV ALAFENAM (DESCOVY) TABLET PO SCH (11:13)
[2017-12-05] MEDS: BUPRENORPHINE/NALOXONE 8 MG/2 MG FILM PACKET SL SCH (11:13)
[2017-12-05] MEDS: NICOTINE 21 MG/24 HOURS TOPICAL PATCH TD SCH ×2 (11:14→16:05)
--- NOTE | 2017-12-05 15:00 | PN ---
[facility] Progress Note Note: EKG REVIEWED AND COMPARED TO PREVIOUS EKG. NO SIGNIFICANT CHANGES. WILL ORDER BMP IN THE AM. CONTINUE TO MONITOR CLINICALLY.
[2017-12-05] MEDS: THIAMINE HCL 100 MG TABLET (FP) PO SCH (21:28)
[2017-12-05] MEDS: MELATONIN 5 MG TABLETS PO PRN (21:29)
[2017-12-06] MEDS: CYCLOBENZAPRINE HCL 5 MG TABLET PO SCH ×3 (06:15→21:38)
[2017-12-06] MEDS: IBUPROFEN 400 MG TABLET (FP) PO PRN (06:15)
[2017-12-06 10:38] LABS: CHLORIDE 103 mmol/L (98-107); POTASSIUM 4.9 mmol/L (3.5-5.1); SODIUM 138 mmol/L (136-145)
[2017-12-06] MEDS: BUPRENORPHINE/NALOXONE 8 MG/2 MG FILM PACKET SL SCH (10:43)
[2017-12-06] MEDS: EMTRICITABINE/TENOFOV ALAFENAM (DESCOVY) TABLET PO SCH (10:43)
[2017-12-06] MEDS: PRENATAL VITAMINS W/ FOLIC ACID TABLET (FP) PO SCH (10:43)
[2017-12-06] MEDS: DOLUTEGRAVIR SODIUM 50 MG TABLET PO SCH (10:44)
[2017-12-06] MEDS: NICOTINE 21 MG/24 HOURS TOPICAL PATCH TD SCH (10:45)
[2017-12-06 10:55] LABS: ANION GAP 9 (8-16); BLOOD UREA NITROGEN 19 mg/dL (7-18); CALCIUM 8.9 mg/dL (8.5-10.1); CO2 26 mmol/L (21-32); CREATININE 0.8 mg/dL (0.7-1.3); GLUCOSE,RANDOM 86 mg/dL (74-106)
--- NOTE | 2017-12-06 12:24 | PN ---
[facility] Progress Note Note: Vital Signs Temperature 98.0 F 12/06/17 07:10 Pulse Rate 83 12/06/17 07:10 Respiratory Rate 18 12/06/17 07:10 Blood Pressure 109/70 12/06/17 07:10 O2 Sat by Pulse Oximetry (%) Laboratory Last Values WBC 7.5 K/mm3 (4.0-10.0) 11/26/17 08:00 RBC 3.94 M/mm3 (4.00-5.60) L 11/26/17 08:00 Hgb 12.2 GM/dL (11.7-16.9) 11/26/17 08:00 Hct 36.6 % (35.4-49) 11/26/17 08:00 MCV 92.9 fl (80-96) 11/26/17 08:00 MCH 31.1 pg (25.7-33.7) 11/26/17 08:00 MCHC 33.5 g/dl (32.0-35.9) 11/26/17 08:00 RDW 15.6 % (11.9-15.9) 11/26/17 08:00 Plt Count 228 K/MM3 (134-434) D 11/26/17 08:00 MPV 8.5 fl (7.5-11.1) 11/26/17 08:00 Sodium 138 mmol/L (136-145) 12/06/17 07:16 Potassium 4.9 mmol/L (3.5-5.1) 12/06/17 07:16 Chloride 103 mmol/L (98-107) 12/06/17 07:16 Carbon Dioxide 26 mmol/L (21-32) 12/06/17 07:16 Anion Gap 9 (8-16) 12/06/17 07:16 BUN 19 mg/dL (7-18) H 12/06/17 07:16 Creatinine 0.8 mg/dL (0.7-1.3) 12/06/17 07:16 Creat Clearance w eGFR > 60 (>60) 12/06/17 07:16 Random Glucose 86 mg/dL (74-106) D 12/06/17 07:16 Calcium 8.9 mg/dL (8.5-10.1) 12/06/17 07:16 Total Bilirubin 0.5 mg/dL (0.2-1.0) 11/26/17 08:00 AST 42 U/L (15-37) H 11/26/17 08:00 ALT 39 U/L (12-78) 11/26/17 08:00 Alkaline Phosphatase 91 U/L (45-117) D 11/26/17 08:00 Total Protein 8.1 g/dl (6.4-8.2) 11/26/17 08:00 Albumin 3.2 g/dl (3.4-5.0) L 11/26/17 08:00 Urine Color Yellow 11/26/17 08:52 Urine Appearance Turbid 11/26/17 08:52 Urine pH 5.0 (5.0-8.0) 11/26/17 08:52 Ur Specific [place] 1.029 (1.001-1.035) 11/26/17 08:52 Urine Protein Negative (NEGATIVE) 11/26/17 08:52 Urine Glucose (UA) Negative (NEGATIVE) 11/26/17 08:52 Urine Ketones Negative (NEGATIVE) 11/26/17 08:52 Urine Blood Negative (NEGATIVE) 11/26/17 08:52 Urine Nitrite Negative (NEGATIVE) 11/26/17 08:52 Urine Bilirubin Negative (<2.0 mg/dL) 11/26/17 08:52 Urine Urobilinogen Negative mg/dL (0.2-1.0) 11/26/17 08:52 Ur Leukocyte Esterase Negative (NEGATIVE) 11/26/17 08:52 RPR Titer Nonreactive (NONREACTIVE) 11/26/17 08:00 c/o of back pain continue flexeril TID lidocaine patch ambulate continue to monitor
--- NOTE | 2017-12-06 13:20 | EKG ---
Test Reason : Blood Pressure : / mmHG Vent. Rate : 086 BPM Atrial Rate : 086 BPM P-R Int : 198 ms QRS Dur : 112 ms QT Int : 364 ms P-R-T Axes : 075 077 067 degrees QTc Int : 435 ms NORMAL SINUS RHYTHM INCOMPLETE RIGHT BUNDLE BRANCH BLOCK BORDERLINE ECG WHEN COMPARED WITH ECG OF 25-NOV-2017 18:05, NO SIGNIFICANT CHANGE WAS FOUND Confirmed by MD MANNY, SHUBHAM ([id number]) on 12/06/2017 1:19:50 PM Referred By: Miley TODD Confirmed By:SHUBHAM BRYANT MD
[2017-12-06] MEDS: LIDOCAINE 5% TOPICAL PATCH TP SCH (14:15)
[2017-12-06] MEDS: hydrOXYzine PAMOATE 50 MG CAPSULE (FP) PO PRN ×2 (14:17→21:43)
[2017-12-06] MEDS: THIAMINE HCL 100 MG TABLET (FP) PO SCH (21:38)
[2017-12-06] MEDS: MELATONIN 5 MG TABLETS PO PRN (21:41)
[2017-12-06] MEDS: LOPERAMIDE HCL 2 MG CAPSULE PO PRN (21:41)
[2017-12-06] MEDS: LIDOCAINE PATCH REMOVAL MC SCH (22:12)
[2017-12-07] MEDS: CYCLOBENZAPRINE HCL 5 MG TABLET PO SCH ×3 (06:40→21:23)
[2017-12-07] MEDS: hydrOXYzine PAMOATE 50 MG CAPSULE (FP) PO PRN ×3 (06:43→21:23)
[2017-12-07] MEDS: EMTRICITABINE/TENOFOV ALAFENAM (DESCOVY) TABLET PO SCH (10:00)
[2017-12-07] MEDS: DOLUTEGRAVIR SODIUM 50 MG TABLET PO SCH (10:00)
[2017-12-07] MEDS: BUPRENORPHINE/NALOXONE 8 MG/2 MG FILM PACKET SL SCH (10:01)
[2017-12-07] MEDS: NICOTINE 21 MG/24 HOURS TOPICAL PATCH TD SCH (10:01)
[2017-12-07] MEDS: LIDOCAINE 5% TOPICAL PATCH TP SCH (10:01)
[2017-12-07] MEDS: PRENATAL VITAMINS W/ FOLIC ACID TABLET (FP) PO SCH (10:01)
[2017-12-07] MEDS: MELATONIN 5 MG TABLETS PO PRN (21:23)
[2017-12-07] MEDS: THIAMINE HCL 100 MG TABLET (FP) PO SCH (21:23)
[2017-12-07] MEDS: LIDOCAINE PATCH REMOVAL MC SCH (21:35)
[2017-12-08] MEDS: hydrOXYzine PAMOATE 50 MG CAPSULE (FP) PO PRN ×4 (06:10→21:23)
[2017-12-08] MEDS: CYCLOBENZAPRINE HCL 5 MG TABLET PO SCH ×3 (06:10→21:25)
[2017-12-08] MEDS: EMTRICITABINE/TENOFOV ALAFENAM (DESCOVY) TABLET PO SCH (10:06)
[2017-12-08] MEDS: BUPRENORPHINE/NALOXONE 8 MG/2 MG FILM PACKET SL SCH (10:07)
[2017-12-08] MEDS: PRENATAL VITAMINS W/ FOLIC ACID TABLET (FP) PO SCH (10:07)
[2017-12-08] MEDS: DOLUTEGRAVIR SODIUM 50 MG TABLET PO SCH (10:07)
[2017-12-08] MEDS: LIDOCAINE 5% TOPICAL PATCH TP SCH (10:08)
[2017-12-08] MEDS: NICOTINE 21 MG/24 HOURS TOPICAL PATCH TD SCH (10:08)
[2017-12-08] MEDS: MELATONIN 5 MG TABLETS PO PRN (21:23)
[2017-12-08] MEDS: THIAMINE HCL 100 MG TABLET (FP) PO SCH (21:23)
[2017-12-08] MEDS: LIDOCAINE PATCH REMOVAL MC SCH (21:24)
[2017-12-09] MEDS: CYCLOBENZAPRINE HCL 5 MG TABLET PO SCH ×3 (06:18→21:28)
[2017-12-09] MEDS: hydrOXYzine PAMOATE 50 MG CAPSULE (FP) PO PRN ×4 (06:19→21:28)
[2017-12-09] MEDS: DOLUTEGRAVIR SODIUM 50 MG TABLET PO SCH (10:05)
[2017-12-09] MEDS: PRENATAL VITAMINS W/ FOLIC ACID TABLET (FP) PO SCH (10:05)
[2017-12-09] MEDS: BUPRENORPHINE/NALOXONE 8 MG/2 MG FILM PACKET SL SCH (10:06)
[2017-12-09] MEDS: EMTRICITABINE/TENOFOV ALAFENAM (DESCOVY) TABLET PO SCH (10:06)
[2017-12-09] MEDS: NICOTINE 21 MG/24 HOURS TOPICAL PATCH TD SCH (10:06)
[2017-12-09] MEDS: LIDOCAINE 5% TOPICAL PATCH TP SCH (10:06)
[2017-12-09] MEDS: IBUPROFEN 400 MG TABLET (FP) PO PRN (18:59)
[2017-12-09] MEDS: LIDOCAINE PATCH REMOVAL MC SCH (21:28)
[2017-12-09] MEDS: THIAMINE HCL 100 MG TABLET (FP) PO SCH (21:28)
[2017-12-09] MEDS: MELATONIN 5 MG TABLETS PO PRN (21:28)
[2017-12-10] MEDS: hydrOXYzine PAMOATE 50 MG CAPSULE (FP) PO PRN ×3 (06:21→21:24)
[2017-12-10] MEDS: CYCLOBENZAPRINE HCL 5 MG TABLET PO SCH ×3 (06:21→21:24)
[2017-12-10] MEDS: PRENATAL VITAMINS W/ FOLIC ACID TABLET (FP) PO SCH (10:32)
[2017-12-10] MEDS: BUPRENORPHINE/NALOXONE 8 MG/2 MG FILM PACKET SL SCH (10:32)
[2017-12-10] MEDS: LIDOCAINE 5% TOPICAL PATCH TP SCH (10:33)
[2017-12-10] MEDS: DOLUTEGRAVIR SODIUM 50 MG TABLET PO SCH (10:33)
[2017-12-10] MEDS: NICOTINE 21 MG/24 HOURS TOPICAL PATCH TD SCH (10:33)
[2017-12-10] MEDS: EMTRICITABINE/TENOFOV ALAFENAM (DESCOVY) TABLET PO SCH (10:57)
[2017-12-10] MEDS: LOPERAMIDE HCL 2 MG CAPSULE PO PRN (16:42)
[2017-12-10] MEDS: THIAMINE HCL 100 MG TABLET (FP) PO SCH (21:24)
[2017-12-10] MEDS: LIDOCAINE PATCH REMOVAL MC SCH (21:24)
[2017-12-10] MEDS: MELATONIN 5 MG TABLETS PO PRN (21:24)
[2017-12-11] MEDS: LOPERAMIDE HCL 2 MG CAPSULE PO PRN ×2 (05:13→19:10)
[2017-12-11] MEDS: CYCLOBENZAPRINE HCL 5 MG TABLET PO SCH ×3 (06:12→21:37)
[2017-12-11] MEDS: hydrOXYzine PAMOATE 50 MG CAPSULE (FP) PO PRN ×3 (06:12→21:38)
[2017-12-11] MEDS: BUPRENORPHINE/NALOXONE 8 MG/2 MG FILM PACKET SL SCH (10:15)
[2017-12-11] MEDS: DOLUTEGRAVIR SODIUM 50 MG TABLET PO SCH (10:16)
[2017-12-11] MEDS: EMTRICITABINE/TENOFOV ALAFENAM (DESCOVY) TABLET PO SCH (10:16)
[2017-12-11] MEDS: PRENATAL VITAMINS W/ FOLIC ACID TABLET (FP) PO SCH (10:16)
[2017-12-11] MEDS: NICOTINE 21 MG/24 HOURS TOPICAL PATCH TD SCH (10:16)
[2017-12-11] MEDS: LIDOCAINE 5% TOPICAL PATCH TP SCH (10:16)
[2017-12-11] MEDS: NICOTINE POLACRILEX 2 MG GUM BC PRN (10:19)
[2017-12-11] MEDS: LIDOCAINE PATCH REMOVAL MC SCH (21:38)
[2017-12-11] MEDS: THIAMINE HCL 100 MG TABLET (FP) PO SCH (21:38)
[2017-12-11] MEDS: MELATONIN 5 MG TABLETS PO PRN (21:38)
[2017-12-12] MEDS: hydrOXYzine PAMOATE 50 MG CAPSULE (FP) PO PRN ×4 (06:22→21:36)
[2017-12-12] MEDS: CYCLOBENZAPRINE HCL 5 MG TABLET PO SCH ×3 (06:22→21:35)
[2017-12-12] MEDS: PRENATAL VITAMINS W/ FOLIC ACID TABLET (FP) PO SCH (10:37)
[2017-12-12] MEDS: LOPERAMIDE HCL 2 MG CAPSULE PO PRN (10:37)
[2017-12-12] MEDS: NICOTINE 21 MG/24 HOURS TOPICAL PATCH TD SCH (10:37)
[2017-12-12] MEDS: BUPRENORPHINE/NALOXONE 8 MG/2 MG FILM PACKET SL SCH (10:37)
[2017-12-12] MEDS: DOLUTEGRAVIR SODIUM 50 MG TABLET PO SCH (10:39)
[2017-12-12] MEDS: EMTRICITABINE/TENOFOV ALAFENAM (DESCOVY) TABLET PO SCH (10:39)
[2017-12-12] MEDS: LIDOCAINE 5% TOPICAL PATCH TP SCH (10:39)
[2017-12-12] MEDS: NICOTINE POLACRILEX 2 MG GUM BC PRN (10:40)
[2017-12-12] MEDS: IBUPROFEN 400 MG TABLET (FP) PO PRN (14:36)
--- NOTE | 2017-12-12 16:32 | PN ---
[facility] Progress Note Note: NOTIFIED BY RN PATIENT BUMPED INTO CLEANING CART AND SUSTAINED SKIN ABRASION. PATIENT ALSO C/O DIARRHEA WITH NO RELIEF OF IMMODIUM. PATIENT DENIES N/V/D. DENIES AT THIS TIME BLEEDING AND PAIN TO RIGHT KNEE. Laboratory Tests 11/26/17 11/26/17 11/26/17 08:00 08:00 08:00 WBC 7.5 RBC 3.94 L Hgb 12.2 Hct 36.6 MCV 92.9 MCH 31.1 MCHC 33.5 RDW 15.6 Plt Count 228 D MPV 8.5 Sodium 139 Potassium 4.5 Chloride 104 Carbon Dioxide 28 Anion Gap 7 L BUN 31 H Creatinine 0.7 Creat Clearance w eGFR > 60 Random Glucose 66 L D Calcium 8.1 L Total Bilirubin 0.5 AST 42 H ALT 39 Alkaline Phosphatase 91 D Total Protein 8.1 Albumin 3.2 L Urine Color Urine Appearance Urine pH Ur Specific [place] Urine Protein Urine Glucose (UA) Urine Ketones Urine Blood Urine Nitrite Urine Bilirubin Urine Urobilinogen Ur Leukocyte Esterase RPR Titer Nonreactive 11/26/17 12/06/17 08:52 07:16 WBC RBC Hgb Hct MCV MCH MCHC RDW Plt Count MPV Sodium 138 Potassium 4.9 Chloride 103 Carbon Dioxide 26 Anion Gap 9 BUN 19 H Creatinine 0.8 Creat Clearance w eGFR > 60 Random Glucose 86 D Calcium 8.9 Total Bilirubin AST ALT Alkaline Phosphatase Total Protein Albumin Urine Color Yellow Urine Appearance Turbid Urine pH 5.0 Ur Specific [place] 1.029 Urine Protein Negative Urine Glucose (UA) Negative Urine Ketones Negative Urine Blood Negative Urine Nitrite Negative Urine Bilirubin Negative Urine Urobilinogen Negative Ur Leukocyte Esterase Negative RPR Titer Vital Signs Temperature 97.9 F 12/12/17 07:18 Pulse Rate 94 H 12/12/17 07:18 Respiratory Rate 18 12/12/17 07:18 Blood Pressure 111/72 12/12/17 07:18 O2 Sat by Pulse Oximetry (%) GENERAL: ALERT AND ORIENTED X 3 SKIN: SMALL RIGHT KNEE ABRASION, NO ACTIVE BLEEDING. MILD REDNESS GI: SOFT, BS+, NT EXT: NO EDEMA, FULL ROM, RIGHT KNEE WITH MILD LOCALIZED SWELLING A/P: RIGHT KNEE SKIN ABRASION DIARRHEA WILL ORDER BACITRACIN TO ABRASION X 5 DAYS LOMOTIL X ONE DOSE CONTINUE TO MONITOR CLINICALLY
[2017-12-12] MEDS ORDERED: DIPHENOXYLATE 2.5/ATROPINE.025 1 COMBO TABLET PO ONE (17:00)
[2017-12-12] MEDS: BACITRACIN 0.9 GM PACKET TP SCH (18:13)
[2017-12-12] MEDS: MELATONIN 5 MG TABLETS PO PRN (21:37)
[2017-12-12] MEDS: THIAMINE HCL 100 MG TABLET (FP) PO SCH (21:37)
[2017-12-12] MEDS: LIDOCAINE PATCH REMOVAL MC SCH (21:52)
[2017-12-13] MEDS: CYCLOBENZAPRINE HCL 5 MG TABLET PO SCH ×3 (06:23→21:17)
[2017-12-13] MEDS: hydrOXYzine PAMOATE 50 MG CAPSULE (FP) PO PRN ×3 (06:23→21:17)
[2017-12-13] MEDS: BUPRENORPHINE/NALOXONE 8 MG/2 MG FILM PACKET SL SCH (10:21)
[2017-12-13] MEDS: PRENATAL VITAMINS W/ FOLIC ACID TABLET (FP) PO SCH (10:21)
[2017-12-13] MEDS: BACITRACIN 0.9 GM PACKET TP SCH (10:21)
[2017-12-13] MEDS: EMTRICITABINE/TENOFOV ALAFENAM (DESCOVY) TABLET PO SCH (10:22)
[2017-12-13] MEDS: LIDOCAINE 5% TOPICAL PATCH TP SCH (10:22)
[2017-12-13] MEDS: NICOTINE POLACRILEX 2 MG GUM BC PRN (10:22)
[2017-12-13] MEDS: NICOTINE 21 MG/24 HOURS TOPICAL PATCH TD SCH (10:22)
[2017-12-13] MEDS: DOLUTEGRAVIR SODIUM 50 MG TABLET PO SCH (10:23)
[2017-12-13] MEDS: LOPERAMIDE HCL 2 MG CAPSULE PO PRN (10:50)
[2017-12-13] MEDS: MELATONIN 5 MG TABLETS PO PRN (21:17)
[2017-12-13] MEDS: THIAMINE HCL 100 MG TABLET (FP) PO SCH (21:17)
[2017-12-13] MEDS: LIDOCAINE PATCH REMOVAL MC SCH (21:18)
[2017-12-14] MEDS: hydrOXYzine PAMOATE 50 MG CAPSULE (FP) PO PRN ×4 (01:29→21:37)
[2017-12-14] MEDS: CYCLOBENZAPRINE HCL 5 MG TABLET PO SCH ×3 (06:03→21:37)
[2017-12-14] MEDS: EMTRICITABINE/TENOFOV ALAFENAM (DESCOVY) TABLET PO SCH (10:33)
[2017-12-14] MEDS: PRENATAL VITAMINS W/ FOLIC ACID TABLET (FP) PO SCH (10:34)
[2017-12-14] MEDS: BUPRENORPHINE/NALOXONE 8 MG/2 MG FILM PACKET SL SCH (10:34)
[2017-12-14] MEDS: LIDOCAINE 5% TOPICAL PATCH TP SCH (10:34)
[2017-12-14] MEDS: BACITRACIN 0.9 GM PACKET TP SCH (10:34)
[2017-12-14] MEDS: DOLUTEGRAVIR SODIUM 50 MG TABLET PO SCH (10:35)
[2017-12-14] MEDS: NICOTINE 21 MG/24 HOURS TOPICAL PATCH TD SCH (10:35)
[2017-12-14] MEDS: NICOTINE POLACRILEX 2 MG GUM BC PRN (10:36)
[2017-12-14] MEDS ORDERED: COLLOIDAL OATMEAL 1 BAR EACH TP PRN (12:24)
[2017-12-14] MEDS: THIAMINE HCL 100 MG TABLET (FP) PO SCH (21:37)
[2017-12-14] MEDS: LIDOCAINE PATCH REMOVAL MC SCH (21:37)
[2017-12-14] MEDS: MELATONIN 5 MG TABLETS PO PRN (21:38)
[2017-12-14] MEDS: IBUPROFEN 400 MG TABLET (FP) PO PRN (21:39)
[2017-12-14] MEDS: LOPERAMIDE HCL 2 MG CAPSULE PO PRN (23:46)
[2017-12-15] MEDS: hydrOXYzine PAMOATE 50 MG CAPSULE (FP) PO PRN ×3 (02:33→11:30)
[2017-12-15] MEDS: CYCLOBENZAPRINE HCL 5 MG TABLET PO SCH ×3 (06:48→21:21)
[2017-12-15] MEDS: LOPERAMIDE HCL 2 MG CAPSULE PO PRN (06:53)
[2017-12-15] MEDS: LIDOCAINE 5% TOPICAL PATCH TP SCH (10:03)
[2017-12-15] MEDS: NICOTINE 21 MG/24 HOURS TOPICAL PATCH TD SCH (10:03)
[2017-12-15] MEDS: DOLUTEGRAVIR SODIUM 50 MG TABLET PO SCH (10:04)
[2017-12-15] MEDS: BACITRACIN 0.9 GM PACKET TP SCH (10:04)
[2017-12-15] MEDS: PRENATAL VITAMINS W/ FOLIC ACID TABLET (FP) PO SCH (10:04)
[2017-12-15] MEDS: EMTRICITABINE/TENOFOV ALAFENAM (DESCOVY) TABLET PO SCH (10:05)
[2017-12-15] MEDS: NICOTINE POLACRILEX 2 MG GUM BC PRN (10:06)
[2017-12-15] MEDS: BUPRENORPHINE/NALOXONE 8 MG/2 MG FILM PACKET SL SCH (10:36)
[2017-12-15] MEDS: LIDOCAINE PATCH REMOVAL MC SCH (21:21)
[2017-12-15] MEDS: THIAMINE HCL 100 MG TABLET (FP) PO SCH (21:21)
[2017-12-15] MEDS: MELATONIN 5 MG TABLETS PO PRN (21:22)
[2017-12-16] MEDS: CYCLOBENZAPRINE HCL 5 MG TABLET PO SCH ×3 (06:12→21:40)
[2017-12-16] MEDS: LOPERAMIDE HCL 2 MG CAPSULE PO PRN (09:46)
[2017-12-16] MEDS: BUPRENORPHINE/NALOXONE 8 MG/2 MG FILM PACKET SL SCH (09:46)
[2017-12-16] MEDS: PRENATAL VITAMINS W/ FOLIC ACID TABLET (FP) PO SCH (09:46)
[2017-12-16] MEDS: BACITRACIN 0.9 GM PACKET TP SCH (09:46)
[2017-12-16] MEDS: NICOTINE 21 MG/24 HOURS TOPICAL PATCH TD SCH (09:48)
[2017-12-16] MEDS: EMTRICITABINE/TENOFOV ALAFENAM (DESCOVY) TABLET PO SCH (09:48)
[2017-12-16] MEDS: DOLUTEGRAVIR SODIUM 50 MG TABLET PO SCH (09:48)
[2017-12-16] MEDS: LIDOCAINE 5% TOPICAL PATCH TP SCH (09:49)
[2017-12-16] MEDS: NICOTINE POLACRILEX 2 MG GUM BC PRN (09:49)
[2017-12-16] MEDS: hydrOXYzine PAMOATE 50 MG CAPSULE (FP) PO PRN ×3 (09:49→21:41)
[2017-12-16] MEDS: THIAMINE HCL 100 MG TABLET (FP) PO SCH (21:40)
[2017-12-16] MEDS: LIDOCAINE PATCH REMOVAL MC SCH (21:40)
[2017-12-16] MEDS: MELATONIN 5 MG TABLETS PO PRN (21:42)
[2017-12-17] MEDS: CYCLOBENZAPRINE HCL 5 MG TABLET PO SCH ×3 (06:10→21:38)
[2017-12-17] MEDS: hydrOXYzine PAMOATE 50 MG CAPSULE (FP) PO PRN ×3 (06:11→21:40)
[2017-12-17] MEDS: EMTRICITABINE/TENOFOV ALAFENAM (DESCOVY) TABLET PO SCH (10:15)
[2017-12-17] MEDS: DOLUTEGRAVIR SODIUM 50 MG TABLET PO SCH (10:16)
[2017-12-17] MEDS: NICOTINE 21 MG/24 HOURS TOPICAL PATCH TD SCH (10:16)
[2017-12-17] MEDS: PRENATAL VITAMINS W/ FOLIC ACID TABLET (FP) PO SCH (10:16)
[2017-12-17] MEDS: BACITRACIN 0.9 GM PACKET TP SCH (10:16)
[2017-12-17] MEDS: LIDOCAINE 5% TOPICAL PATCH TP SCH (10:17)
[2017-12-17] MEDS: BUPRENORPHINE/NALOXONE 8 MG/2 MG FILM PACKET SL SCH (10:17)
[2017-12-17] MEDS: NICOTINE POLACRILEX 2 MG GUM BC PRN (10:18)
[2017-12-17] MEDS: THIAMINE HCL 100 MG TABLET (FP) PO SCH (21:38)
[2017-12-17] MEDS: LIDOCAINE PATCH REMOVAL MC SCH (21:38)
[2017-12-17] MEDS: MELATONIN 5 MG TABLETS PO PRN (21:41)
[2017-12-18] MEDS: CYCLOBENZAPRINE HCL 5 MG TABLET PO SCH ×3 (06:25→21:30)
[2017-12-18] MEDS: LOPERAMIDE HCL 2 MG CAPSULE PO PRN (08:50)
[2017-12-18] MEDS: BUPRENORPHINE/NALOXONE 8 MG/2 MG FILM PACKET SL SCH (10:01)
[2017-12-18] MEDS: hydrOXYzine PAMOATE 50 MG CAPSULE (FP) PO PRN ×3 (10:02→21:30)
[2017-12-18] MEDS: LIDOCAINE 5% TOPICAL PATCH TP SCH (10:02)
[2017-12-18] MEDS: DOLUTEGRAVIR SODIUM 50 MG TABLET PO SCH (10:02)
[2017-12-18] MEDS: PRENATAL VITAMINS W/ FOLIC ACID TABLET (FP) PO SCH (10:02)
[2017-12-18] MEDS: BACITRACIN 0.9 GM PACKET TP SCH (10:02)
[2017-12-18] MEDS: EMTRICITABINE/TENOFOV ALAFENAM (DESCOVY) TABLET PO SCH (10:02)
[2017-12-18] MEDS: NICOTINE POLACRILEX 2 MG GUM BC PRN (10:03)
[2017-12-18] MEDS: NICOTINE 21 MG/24 HOURS TOPICAL PATCH TD SCH (10:03)
[2017-12-18] MEDS: THIAMINE HCL 100 MG TABLET (FP) PO SCH (21:30)
[2017-12-18] MEDS: MELATONIN 5 MG TABLETS PO PRN (21:30)
[2017-12-18] MEDS: LIDOCAINE PATCH REMOVAL MC SCH (21:31)
[2017-12-19] MEDS: hydrOXYzine PAMOATE 50 MG CAPSULE (FP) PO PRN ×4 (01:40→21:22)
[2017-12-19] MEDS: CYCLOBENZAPRINE HCL 5 MG TABLET PO SCH ×3 (06:14→21:22)
[2017-12-19] MEDS: EMTRICITABINE/TENOFOV ALAFENAM (DESCOVY) TABLET PO SCH (10:39)
[2017-12-19] MEDS: NICOTINE 21 MG/24 HOURS TOPICAL PATCH TD SCH (10:39)
[2017-12-19] MEDS: BUPRENORPHINE/NALOXONE 8 MG/2 MG FILM PACKET SL SCH (10:39)
[2017-12-19] MEDS: LIDOCAINE 5% TOPICAL PATCH TP SCH (10:39)
[2017-12-19] MEDS: BACITRACIN 0.9 GM PACKET TP SCH (10:39)
[2017-12-19] MEDS: DOLUTEGRAVIR SODIUM 50 MG TABLET PO SCH (10:39)
[2017-12-19] MEDS: PRENATAL VITAMINS W/ FOLIC ACID TABLET (FP) PO SCH (10:39)
[2017-12-19] MEDS: THIAMINE HCL 100 MG TABLET (FP) PO SCH (21:22)
[2017-12-19] MEDS: LIDOCAINE PATCH REMOVAL MC SCH (21:22)
[2017-12-19] MEDS: MELATONIN 5 MG TABLETS PO PRN (21:22)
[2017-12-20] MEDS: hydrOXYzine PAMOATE 50 MG CAPSULE (FP) PO PRN ×4 (01:36→21:24)
[2017-12-20] MEDS: CYCLOBENZAPRINE HCL 5 MG TABLET PO SCH ×3 (06:47→21:23)
[2017-12-20] MEDS ORDERED: PT OWN MED DRAWER 7, Y5N ONE (08:59)
[2017-12-20] MEDS: LIDOCAINE 5% TOPICAL PATCH TP SCH (10:16)
[2017-12-20] MEDS: NICOTINE 21 MG/24 HOURS TOPICAL PATCH TD SCH (10:16)
[2017-12-20] MEDS: EMTRICITABINE/TENOFOV ALAFENAM (DESCOVY) TABLET PO SCH (10:16)
[2017-12-20] MEDS: DOLUTEGRAVIR SODIUM 50 MG TABLET PO SCH (10:16)
[2017-12-20] MEDS: BUPRENORPHINE/NALOXONE 8 MG/2 MG FILM PACKET SL SCH (10:16)
[2017-12-20] MEDS: PRENATAL VITAMINS W/ FOLIC ACID TABLET (FP) PO SCH (10:16)
[2017-12-20] MEDS: BACITRACIN 0.9 GM PACKET TP SCH (10:16)
[2017-12-20] MEDS: NICOTINE POLACRILEX 2 MG GUM BC PRN (10:17)
[2017-12-20] MEDS: THIAMINE HCL 100 MG TABLET (FP) PO SCH (21:23)
[2017-12-20] MEDS: MELATONIN 5 MG TABLETS PO PRN (21:23)
[2017-12-20] MEDS: LIDOCAINE PATCH REMOVAL MC SCH (21:25)
[2017-12-21] MEDS: hydrOXYzine PAMOATE 50 MG CAPSULE (FP) PO PRN ×4 (06:08→21:34)
[2017-12-21] MEDS: CYCLOBENZAPRINE HCL 5 MG TABLET PO SCH ×3 (06:08→21:33)
[2017-12-21] MEDS: LIDOCAINE 5% TOPICAL PATCH TP SCH (10:14)
[2017-12-21] MEDS: DOLUTEGRAVIR SODIUM 50 MG TABLET PO SCH (10:14)
[2017-12-21] MEDS: BUPRENORPHINE/NALOXONE 8 MG/2 MG FILM PACKET SL SCH (10:14)
[2017-12-21] MEDS: PRENATAL VITAMINS W/ FOLIC ACID TABLET (FP) PO SCH (10:14)
[2017-12-21] MEDS: NICOTINE 21 MG/24 HOURS TOPICAL PATCH TD SCH (10:14)
[2017-12-21] MEDS: EMTRICITABINE/TENOFOV ALAFENAM (DESCOVY) TABLET PO SCH (10:14)
[2017-12-21] MEDS: BACITRACIN 0.9 GM PACKET TP SCH (10:14)
[2017-12-21] MEDS: NICOTINE POLACRILEX 2 MG GUM BC PRN (10:15)
[2017-12-21] MEDS: THIAMINE HCL 100 MG TABLET (FP) PO SCH (21:33)
[2017-12-21] MEDS: MELATONIN 5 MG TABLETS PO PRN (21:33)
[2017-12-21] MEDS: LIDOCAINE PATCH REMOVAL MC SCH (21:53)
[2017-12-22] MEDS: hydrOXYzine PAMOATE 50 MG CAPSULE (FP) PO PRN ×4 (01:45→21:31)
[2017-12-22] MEDS: CYCLOBENZAPRINE HCL 5 MG TABLET PO SCH ×3 (06:33→21:31)
[2017-12-22] MEDS: NICOTINE POLACRILEX 2 MG GUM BC PRN ×3 (06:45→14:13)
[2017-12-22] MEDS: MAG HYDROX/AL HYDROX/SIMETH 30 ML UNIT-DOSE CUP PO PRN (09:10)
[2017-12-22] MEDS: DOLUTEGRAVIR SODIUM 50 MG TABLET PO SCH (10:17)
[2017-12-22] MEDS: PRENATAL VITAMINS W/ FOLIC ACID TABLET (FP) PO SCH (10:17)
[2017-12-22] MEDS: BUPRENORPHINE/NALOXONE 8 MG/2 MG FILM PACKET SL SCH (10:17)
[2017-12-22] MEDS: LIDOCAINE 5% TOPICAL PATCH TP SCH (10:18)
[2017-12-22] MEDS: EMTRICITABINE/TENOFOV ALAFENAM (DESCOVY) TABLET PO SCH (10:18)
[2017-12-22] MEDS: NICOTINE 21 MG/24 HOURS TOPICAL PATCH TD SCH (10:18)
[2017-12-22] MEDS: BACITRACIN 0.9 GM PACKET TP SCH (10:19)
--- NOTE | 2017-12-22 17:18 | PN ---
Psychiatric Progress Note Vital Signs: Vital Signs Period Temp Pulse Resp BP Sys/Agustin Pulse Ox Last 24 Hr 98.2 F 86 18-18 112/75 Date of Session: 12/22/17 Chief Complaint:: "Discharge" HPI: Patient admitted to for heroin and cocaine dependence. 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 Current Medications: Active Medications Generic Name Dose Route Start Last Admin Trade Name Freq PRN Reason Stop Dose Admin Acetaminophen 650 mg 11/25/17 15:37 Tylenol - PO Q4H PRN FEVER Al Hydroxide/Mg Hydroxide 30 ml 11/25/17 15:37 12/22/17 09:10 Mylanta Oral Suspension - PO 30 ml Q6H PRN Administration DYSPEPSIA Albuterol Sulfate 2 puff 11/25/17 15:35 Ventolin Hfa Inhaler - IH Q6H PRN ASTHMA Albuterol Sulfate 1 amp 11/25/17 15:35 Ventolin 0.083% Nebulizer Soln - NEB Q4H PRN SHORT OF BREATH/WHEEZING Bacitracin 0.9 gm 12/12/17 17:00 12/22/17 10:19 Bacitracin - TP Not Given DAILY SOFIA Colloidal Oatmeal 1 applic 12/14/17 12:24 12/14/17 23:46 Aveeno Soap - TP 1 bar DAILY PRN Administration HYGEINE Cyclobenzaprine HCl 5 mg 11/25/17 22:00 12/22/17 14:12 Cyclobenzaprine Hcl PO 5 mg TID SOFIA Administration Eucalyptus/Menthol/Phenol/Sorbitol 1 each 11/25/17 15:37 Cepastat Lozenge - MM Q4H PRN SORE THROAT Guaifenesin 10 ml 11/25/17 15:37 Robitussin Dm - PO Q6H PRN COUGH Hydroxyzine Pamoate 50 mg 11/25/17 15:37 12/22/17 14:13 Vistaril - PO 50 mg Q4H PRN Administration AGITATION Ibuprofen 400 mg 11/25/17 15:37 12/14/17 21:39 Motrin - PO 400 mg Q6H PRN Administration Pain level 4-6 Lidocaine 1 patch 12/06/17 14:00 12/22/17 10:18 Lidoderm Patch - TP Not Given DAILY SOFIA Loperamide HCl 4 mg 11/25/17 15:37 12/18/17 08:50 Imodium - PO 4 mg Q6H PRN Administration DIARRHEA Magnesium Citrate 300 ml 11/25/17 15:37 Citroma - PO Q48H PRN CONSTIPATION Magnesium Hydroxide 30 ml 11/25/17 15:37 Milk Of Magnesia - PO DAILY PRN CONSTIPATION Melatonin 5 mg 11/25/17 22:00 12/21/17 21:33 Melatonin PO 5 mg HS PRN Administration INSOMNIA Miscellaneous 1 each 12/06/17 22:00 12/21/17 21:53 Lidoderm Patch Removal MC Not Given DAILY@2200 SOFIA Nicotine 14 mg 12/05/17 15:30 12/22/17 10:18 Nicoderm Patch - TD Not Given DAILY SOFIA Nicotine Polacrilex 2 mg 11/25/17 15:37 12/22/17 14:13 Nicorette Gum - BC 2 mg Q2H PRN Administration NICOTINE REPLACEMENT RX Multivit/Folic Acid/Iron 1 tab 11/26/17 10:00 12/22/17 10:17 Vitamins (Sjr) - PO 1 tab DAILY SOFIA Administration Pseudoephedrine/Triprolidine 1 combo 11/25/17 15:37 Actifed - PO TID PRN NASAL CONGESTION Thiamine HCl 100 mg 11/25/17 22:00 12/21/17 21:33 Vitamin B1 - PO 100 mg HS SOFIA Administration Medication(s) Change(s): No. Current Side Effect: No Lab tests ordered: No Lab tests reviewed: Yes Provider note:: Patient will complete the [facility] rehabilitation program on 12/23/17. He has met his treatment goals and is able to identify behaviors that contribute to relapsing. Through participation of this program patient has learned the importance of changing his behavior and the need for more structure in his life. Pt. reports feeling motiviated to continue to do well. Patient will continue to address his issues at the [facility] outpatient clinic. Patient is stable for discharge on 12/23/17. Total face to face time:: 35 Mental Status Exam - Mental Status Exam Alert and Oriented to: Time, Place, Person Cognitive Function: Good Patient Appearance: Well Groomed Mood: Hopeful Affect: Mood Congruent Patient Behavior: Appropriate, Cooperative Speech Pattern: Clear, Appropriate Voice Loudness: Normal Thought Process: Intact, Goal Oriented Thought Disorder: Not Present Hallucinations: Denies Suicidal Ideation: Denies Homicidal Ideation: Denies Insight/Judgement: Good Sleep: Well Appetite: Good Muscle strength/Tone: Normal Gait/Station: Normal Psychiatric Treatment Plan - Problem List (1) Cocaine dependence Current Visit: Yes Qualifiers: Substance use status: uncomplicated Qualified Code(s): F14.20 - Cocaine dependence, uncomplicated Comment: as above, cont to discuss tx and f/u. (2) Nicotine dependence Current Visit: Yes (3) Opioid dependence Current Visit: Yes (4) Substance-induced sleep disorder Current Visit: Yes (5) Opioid dependence on agonist therapy Current Visit: Yes (6) legally blind right s/p trauma ands/p corneal transplant pos Current Visit: Yes Comment: to f/u with ophtho after d/c. (7) HIV antibody positive Current Visit: Yes (8) Hepatitis C virus Current Visit: Yes Qualifiers: Viral hepatitis chronicity: unspecified Comment: tx'd previously with svr, he is agreeable to repeat vl for possible re- expsoure. (9) Hyperthyroidism Current Visit: Yes
[2017-12-22] MEDS: MELATONIN 5 MG TABLETS PO PRN (21:31)
[2017-12-22] MEDS: THIAMINE HCL 100 MG TABLET (FP) PO SCH (21:31)
[2017-12-22] MEDS: LIDOCAINE PATCH REMOVAL MC SCH (21:32)
[2017-12-23] MEDS: hydrOXYzine PAMOATE 50 MG CAPSULE (FP) PO PRN ×2 (02:35→08:46)
[2017-12-23] MEDS: CYCLOBENZAPRINE HCL 5 MG TABLET PO SCH (06:19)
[2017-12-23 07:15] VITALS: BP 122/75; PULSE 84; TEMP 97.5
[2017-12-23] MEDS: NICOTINE POLACRILEX 2 MG GUM BC PRN (09:06)
[2017-12-23] MEDS ORDERED: BUPRENORPHINE/NALOXONE 8 MG/2 MG FILM PACKET SL ONE (09:43)
[2017-12-23] MEDS: PRENATAL VITAMINS W/ FOLIC ACID TABLET (FP) PO SCH (10:51)
[2017-12-23] MEDS: DOLUTEGRAVIR SODIUM 50 MG TABLET PO SCH (10:52)
[2017-12-23] MEDS: BACITRACIN 0.9 GM PACKET TP SCH (10:53)
[2017-12-23] MEDS: EMTRICITABINE/TENOFOV ALAFENAM (DESCOVY) TABLET PO SCH (10:53)
[2017-12-23] MEDS: LIDOCAINE 5% TOPICAL PATCH TP SCH (10:54)
[2017-12-23] MEDS: NICOTINE 21 MG/24 HOURS TOPICAL PATCH TD SCH (10:54)
== END 2017-12-23 10:00 | disposition home or self-care (01) | DRG 772 ==
LOC: YASAS 12:16 → Y5N 17:29
PROVIDERS: ADMIT Psychiatry & Neurology Psychiatry; ATTEND Psychiatry & Neurology Psychiatry
PROC: HZ42ZZZ Group Counseling for Substance Abuse Treatment, Cognitive-Behavioral (ICD-10-PCS; principal; 2017-11-26)
DX: F11.20 Opioid dependence, uncomplicated (principal); F14.20 Cocaine dependence, uncomplicated; F17.210 Nicotine dependence, cigarettes, uncomplicated; F19.282 Other psychoactive substance dependence with psychoactive substance-induced sleep disorder; B18.2 Chronic viral hepatitis C; E05.90 Thyrotoxicosis, unspecified without thyrotoxic crisis or storm; R00.2 Palpitations; H54.8 Legal blindness, as defined in USA; S80.211A Abrasion, right knee, initial encounter; W22.8XXA Striking against or struck by other objects, initial encounter; Y93.89 Activity, other specified; Y92.238 Other place in hospital as the place of occurrence of the external cause; Y99.8 Other external cause status; Z94.7 Corneal transplant status; B20 Human immunodeficiency virus [HIV] disease
CPT/HCPCS: 36415; 80048; 80053; 81003; 85027; 86593; 93005; 93010

== ENCOUNTER 2018-08-04 17:05 | Inpatient (IN) | payer OTHER ==
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
[2018-08-04 17:37] VITALS: BMI 21.2
[2018-08-04] MEDS ORDERED: MAG HYDROX/AL HYDROX/SIMETH 30 ML UNIT-DOSE CUP PO PRN (17:42)
[2018-08-04] MEDS ORDERED: guaiFENesin/D-METHORPHAN HB 10 ML UNIT-DOSE CUPS PO PRN (17:42)
[2018-08-04] MEDS ORDERED: NICOTINE POLACRILEX 2 MG GUM BC PRN (17:42)
[2018-08-04] MEDS ORDERED: MAGNESIUM CITRATE 300 ML BOTTLE PO PRN (17:42)
[2018-08-04] MEDS ORDERED: ACETAMINOPHEN 325 MG TABLET (FP) PO PRN (17:42)
[2018-08-04] MEDS ORDERED: IBUPROFEN 400 MG TABLET (FP) PO PRN (17:42)
[2018-08-04] MEDS ORDERED: METHADONE HCL 10 MG TABLET (FOR DETOX USE ONLY) PO ONE ×2 (17:42→23:00)
[2018-08-04] MEDS ORDERED: MENTHOL/PHENOL 1 EACH UD MM PRN (17:42)
[2018-08-04] MEDS ORDERED: MAGNESIUM HYDROX 2400MG/30ML ORAL SUSPENSION 30 ML CUP PO PRN (17:42)
[2018-08-04] MEDS ORDERED: P-EPHED 60MG/TRIPROLIDI 2.5MG TABLET PO PRN (17:42)
[2018-08-04] MEDS ORDERED: ALBUTEROL SO4 0.083% IH SOL 2.5 MG/3 ML VIAL.NEB. NEB PRN (17:45)
[2018-08-04] MEDS ORDERED: hydrOXYzine PAMOATE 50 MG CAPSULE (FP) PO SCH (22:00)
[2018-08-04] MEDS ORDERED: MELATONIN 5 MG TABLETS PO PRN (22:00)
[2018-08-04] MEDS ORDERED: THIAMINE HCL 100 MG TABLET (FP) PO SCH (22:00)
[2018-08-05 07:07] VITALS: TEMP 97.7
[2018-08-05 09:34] VITALS: BP 109/62; PULSE 68
[2018-08-05] MEDS ORDERED: EMTRICITABINE/TENOFOV ALAFENAM (DESCOVY) TABLET PO SCH (10:00)
[2018-08-05] MEDS ORDERED: PRENATAL VITAMINS W/ FOLIC ACID TABLET (FP) PO SCH (10:00)
[2018-08-05] MEDS ORDERED: DARUNAVIR 800 MG/COBICISTAT 150MG TABLET PO SCH (10:00)
[2018-08-05] MEDS ORDERED: METHADONE HCL 10 MG TABLET (FOR DETOX USE ONLY) PO ONE (10:00)
[2018-08-05 10:25] LABS: ALBUMIN 3.7 g/dl (3.4-5.0); ALK PHOS 87 U/L (45-117); ANION GAP 7 MMOL/L (8-16); BILIRUBIN,TOTAL 0.7 mg/dL (0.2-1); BLOOD UREA NITROGEN 20 mg/dL (7-18); CALCIUM 8.8 mg/dL (8.5-10.1); CHLORIDE 103 mmol/L (98-107); CO2 27 mmol/L (21-32); GLUCOSE,RANDOM 84 mg/dL (74-106); POTASSIUM 4.7 mmol/L (3.5-5.1); SGOT/AST 21 U/L (15-37); SGPT/ALT 17 U/L (13-61); SODIUM 137 mmol/L (136-145); TOT PROT 7.7 g/dl (6.4-8.2)
[2018-08-05 10:48] LABS: HEMATOCRIT 37.9 % (35.4-49); HEMOGLOBIN 13.1 GM/dL (11.7-16.9); MCH 33.5 pg (25.7-33.7); MCHC 34.6 g/dl (32.0-35.9); MEAN CELL VOLUME 96.7 fl (80-96); MEAN PLT VOLUME 9.4 fl (7.5-11.1); PLATELET COUNT 245 K/MM3 (134-434); RBC 3.92 M/mm3 (4.00-5.60); RDW 13.6 % (11.9-15.9); WHITE BLOOD COUNT 5.4 K/mm3 (4.0-10.0)
--- NOTE | 2018-08-05 11:54 | PN ---
[facility] Progress Note Note: Pt walked up to the nursing station requesting to leave stating he was not feeling well. Educated pt that he is feeling withdrawal sxs which are expected but will subside with medication and time Pt initially said he will stay to complete detox but has to make a phone call to his first. Pt returned to this provider after the phone call and after a.m medication insisting on leaving stating "I just have to leave" Pt at this time not receptive to education to complete detox. Pt understands that he will be leaving the facility against medical advice. Pt agitated but not in acute medical distress A & O x 3 and has steady gait Vital Signs Temperature 97.7 F 08/05/18 09:33 Pulse Rate 68 08/05/18 09:33 Respiratory Rate 18 08/05/18 09:33 Blood Pressure 109/62 08/05/18 09:33 O2 Sat by Pulse Oximetry (%) Laboratory Last Values WBC 5.4 K/mm3 (4.0-10.0) 08/05/18 07:50 RBC 3.92 M/mm3 (4.00-5.60) L 08/05/18 07:50 Hgb 13.1 GM/dL (11.7-16.9) 08/05/18 07:50 Hct 37.9 % (35.4-49) 08/05/18 07:50 MCV 96.7 fl (80-96) H 08/05/18 07:50 MCH 33.5 pg (25.7-33.7) 08/05/18 07:50 MCHC 34.6 g/dl (32.0-35.9) 08/05/18 07:50 RDW 13.6 % (11.9-15.9) 08/05/18 07:50 Plt Count 245 K/MM3 (134-434) 08/05/18 07:50 MPV 9.4 fl (7.5-11.1) 08/05/18 07:50 Sodium 137 mmol/L (136-145) 08/05/18 07:50 Potassium 4.7 mmol/L (3.5-5.1) 08/05/18 07:50 Chloride 103 mmol/L (98-107) 08/05/18 07:50 Carbon Dioxide 27 mmol/L (21-32) 08/05/18 07:50 Anion Gap 7 MMOL/L (8-16) L 08/05/18 07:50 BUN 20 mg/dL (7-18) H 08/05/18 07:50 Creatinine 1.0 mg/dL (0.55-1.3) 08/05/18 07:50 Creat Clearance w eGFR > 60 (>60) 08/05/18 07:50 Random Glucose 84 mg/dL (74-106) 08/05/18 07:50 Calcium 8.8 mg/dL (8.5-10.1) 08/05/18 07:50 Total Bilirubin 0.7 mg/dL (0.2-1) 08/05/18 07:50 AST 21 U/L (15-37) 08/05/18 07:50 ALT 17 U/L (13-61) 08/05/18 07:50 Alkaline Phosphatase 87 U/L (45-117) 08/05/18 07:50 Total Protein 7.7 g/dl (6.4-8.2) 08/05/18 07:50 Albumin 3.7 g/dl (3.4-5.0) 08/05/18 07:50 Pt declines any med refill
--- NOTE | 2018-08-05 11:57 | DS ---
S Detox Discharge Summary Admission Date: 08/04/18 Discharge Date: 08/05/18 - History Additional Comments: Pt left unit AMA Pls see progress note - Physical Exam Results Vital Signs: Vital Signs Temperature 97.7 F 08/05/18 09:33 Pulse Rate 68 08/05/18 09:33 Respiratory Rate 18 08/05/18 09:33 Blood Pressure 109/62 08/05/18 09:33 O2 Sat by Pulse Oximetry (%) - Medication Discharge Medications: Ambulatory Orders Sertraline HCl [Zoloft -] 50 mg PO DAILY #30 tablet 05/17/18 hydrOXYzine PAMOATE [Vistaril -] 50 mg PO HS #30 capsule 05/17/18 Darunavir/Cobicistat [Prezcobix 800 mg-150 mg Tablet] 1 each PO DAILY #30 tablet 05/23/18 Emtricitabine/Tenofov Alafenam [Descovy 200-25 mg Tablet (Nf)] 1 each PO DAILY # 30 tablet 05/23/18 Albuterol Sulfate Inhaler - [Ventolin HFA Inhaler -] 2 puff IH Q6H PRN #1 inhaler 06/13/18 Diphenhydramine HCl [Benadryl Capsule -] 25 mg PO Q8H #90 capsule 06/13/18 - AMA Did Patient Leave Against Medical Advice: Yes
[2018-08-06] MEDS ORDERED: METHADONE HCL 5 MG TABLET (FOR DETOX USE ONLY) PO ONE (10:00)
[2018-08-07] MEDS ORDERED: METHADONE HCL 10 MG TABLET (FOR DETOX USE ONLY) PO ONE (10:00)
[2018-08-08] MEDS ORDERED: METHADONE HCL 5 MG TABLET (FOR DETOX USE ONLY) PO ONE (06:00)
== END 2018-08-05 10:30 | disposition left against medical advice (07) | DRG 770 ==
LOC: YASAS 17:05 → Y6N 17:47
PROVIDERS: ADMIT Surgery; ATTEND Surgery
PROC: HZ2ZZZZ Detoxification Services for Substance Abuse Treatment (ICD-10-PCS; principal; 2018-08-04)
DX: F11.23 Opioid dependence with withdrawal (principal); F17.210 Nicotine dependence, cigarettes, uncomplicated; B20 Human immunodeficiency virus [HIV] disease; B18.2 Chronic viral hepatitis C; J44.9 Chronic obstructive pulmonary disease, unspecified; E05.90 Thyrotoxicosis, unspecified without thyrotoxic crisis or storm; H54.40 Blindness, one eye, unspecified eye; Z87.891 Personal history of nicotine dependence
CPT/HCPCS: 36415; 80053; 85027; 86593

== ENCOUNTER 2018-09-25 12:43 | Inpatient (IN) | payer OTHER ==
[2018-09-25 18:36] VITALS: BMI 21.7
--- NOTE | 2018-09-25 20:12 | HP ---
COWS - Scale Resting Pulse: 0= [place] 80 or Below Sweatin= Chills/Flushing Restless Observation: 1= Difficult to Sit Still Pupil Size: 0= Normal to Room Light Bone or Joint Aches: 4=Acute Joint/Muscle Pain Runny Nose/ Eye Tearin= Runny Nose/Eyes GI Upset > 30mins: 3= Vomiting/Diarrhea (vomiting x 3, diarrhea x 2) Tremor Observation: 2= Slight Tremor Visible Yawning Observation: 0= None Anxiety or Irritability: 2=Irritable/Anxious Goose Flesh Skin: 0=Smooth Skin COWS Score: 15 CIWA Score - Admission Criteria OASAS Guidelines: Admission for Medically Managed Detox: Requires at least one of the followin. CIWA greater than 12 2. Seizures within the past 24 hours 3. Delirium tremens within the past 24 hours 4. Hallucinations within the past 24 hours 5. Acute intervention needed for co occurring medical disorder 6. Acute intervention needed for co occurring psychiatric disorder 7. Severe withdrawal that cannot be handled at a lower level of care (continued vomiting, continued diarrhea, abnormal vital signs) requiring intravenous medication and/or fluids 8. Admission ROS [facility] Chief Complaint: Heroin withdrawal symptoms Allergies/Adverse Reactions: Allergies Allergy/AdvReac Type Severity Reaction Status Date / Time No Known Drug Allergies Allergy Severe diarrhea Verified 09/25/18 18:28 lactose AdvReac Verified 09/25/18 18:28 History of Present Illness: 48 years old male with a long history of heroin dependence is seeking admission to detox. Patient has been in previous detox at [facility] and reports 5 years of sobriety. He has medical history of HIV+, anxiety, COPD, arthritis, hyperthyroidism and depression. He denies suicide attempt or suicidal ideation at this time. Exam Limitations: No Limitations - Ebola screening Have you traveled outside of the country in the last 21 days: No Have you had contact with anyone from an Ebola affected area: No Have you been sick,other than usual withdrawal symptoms: No Do you have a fever: No - Review of Systems Constitutional: Chills, Malaise, Weakness EENT: reports: Blurred Vision (right eye), Nose Congestion Respiratory: reports: No Symptoms reported Cardiac: reports: No Symptoms Reported GI: reports: Diarrhea (x 2), Poor Appetite, Poor Fluid Intake, Vomiting (x 3), Abdominal cramping : reports: No Symptoms Reported Musculoskeletal: reports: Back Pain, Joint Pain, Muscle Pain Integumentary: reports: Dryness, Flushing Neuro: reports: Numbness, Tremors Endocrine: reports: No Symptoms Reported Hematology: reports: No Symptoms Reported Psychiatric: reports: Anxious, Depressed Other Systems: Reviewed and Negative Patient History - Patient Medical History Hx Anemia: No Hx Asthma: No Hx Chronic Obstructive Pulmonary Disease (COPD): Yes Hx Cancer: No Hx Cardiac Disorders: No Hx Congestive Heart Failure: No Hx Hypertension: No Hx Hypercholesterolemia: No Hx Pacemaker: No HX Cerebrovascular Accident: No Hx Seizures: No Hx Dementia: No Hx Diabetes: No Hx Gastrointestinal Disorders: No Hx Liver Disease: Yes ( Hep c) Hx Genitourinary Disorders: No Hx Sexually Transmitted Disorders: No Hx Renal Disease (ESRD): No Hx Thyroid Disease: Yes (hyperthyroidism- Not on medication) Hx Human Immunodeficiency Virus (HIV): Yes (CHRISTINE) Hx Hepatitis C: Yes (completed 48 wks peginf/riba with svr) Hx Depression: Yes (Not on medication) Hx Suicide Attempt: No Hx Bipolar Disorder: No Hx Schizophrenia: Yes Other Medical History: ANXIETY - Not on medication - Patient Surgical History Past Surgical History: Yes Hx Neurologic Surgery: No Hx Cataract Extraction: No Hx Cardiac Surgery: No Hx Lung Surgery: No Hx Breast Surgery: No Hx Breast Biopsy: No Hx Abdominal Surgery: Yes (hernia repair 1996) Hx Appendectomy: No Hx Cholecystectomy: No Hx Genitourinary Surgery: No Hx Orthopedic Surgery: No Other Surgical History: corneal transplantation x 3, legally blind,post trauma Anesthesia Reaction: No - PPD History Date: 08/06/18 Results: 0 mm PPD to be Administered?: No - Reproductive History Patient is a Female of Child Bearing Age (11 -55 yrs old): No (male) - Smoking Cessation Smoking history: Former smoker Have you smoked in the past 12 months: No If you are a former smoker, when did you quit?: Approximately 2 years ago. Cigars Per Day: 0 Hx Chewing Tobacco Use: No Initiated information on smoking cessation: No - Substance & Tx. History Hx Alcohol Use: No Hx Substance Use: Yes Substance Use Type: Cocaine, Heroin Hx Substance Use Treatment: Yes ([facility]) - Substances abused Heroin Substance route: Injection Frequency: Daily Amount used: 1 BUNDLE Age of first use: 33 Date of last use: 09/25/18 Cocaine Substance route: Smoking Frequency: Daily Amount used: $20 Age of first use: 12 Date of last use: 09/22/18 Family Disease History - Family Disease History Family Disease History: Diabetes: Mother (a&w with stable asthma, htn, dm), Heart Disease: Mother, Other: Grandparent (mat side dec'd older age; pat side unk), Father (AIDS, age ~50s), Mother, Brother (5 - 1 with aids, 1 with developmental delay, others unk), Sister (2 - 1 dec'd from liver disease), Son (1 - a&w hiv neg), Daughter (0) Admission Physical Exam S - Vital Signs Vital Signs: Vital Signs - 24 hr 09/25/18 18:32 Temperature 98.7 F Pulse Rate 75 Respiratory 18 Rate Blood Pressure 106/72 - Physical General Appearance: Yes: Moderate Distress, Tremorous, Irritable, Anxious HEENTM: Yes: EOMI, Normal ENT Inspection, Normal Voice, JUDITH, Orbits Respiratory: Yes: Normal Breath Sounds, No Respiratory Distress Neck: Yes: Supple Breast: Yes: Breast Exam Deferred Cardiology: Yes: Regular Rhythm, Regular Rate Abdominal: Yes: Normal Bowel Sounds Genitourinary: Yes: Within Normal Limits Back: Yes: Normal Inspection, Muscle Spasm Musculoskeletal: Yes: Within Normal Limits, Back pain, Muscle Pain Extremities: Yes: Tremors Neurological: Yes: Alert, Normal Mood/Affect Integumentary: Yes: Warm Lymphatic: Yes: Within Normal Limits - Diagnostic (1) Depression Current Visit: Yes Status: Chronic Qualifiers: Depression Type: unspecified Qualified Code(s): F32.9 - Major depressive disorder, single episode, unspecified (2) COPD (chronic obstructive pulmonary disease) Current Visit: Yes Status: Chronic Qualifiers: Chronic bronchitis type: unspecified (3) HIV (human immunodeficiency virus infection) Current Visit: Yes Status: Chronic (4) Cocaine dependence Current Visit: Yes Status: Chronic Qualifiers: Substance use status: uncomplicated Qualified Code(s): F14.20 - Cocaine dependence, uncomplicated Comment: as above, cont to discuss tx and f/u. (5) Opioid dependence with withdrawal Current Visit: Yes Status: Chronic (6) Anxiety Current Visit: Yes Status: Chronic (7) Hyperthyroidism Current Visit: Yes Status: Chronic Comment: recent tsh wnl but will regine an endo appt for eval. (8) legally blind right s/p trauma ands/p corneal transplant pos Current Visit: Yes Status: Chronic Comment: violet with dr. welch - needs assistance with transportation. Cleared for Admission S - Detox or Rehab [facility] Level of Care: Medically Managed Detox Regimen/Protocol: Methadone Breathalyzer - Breathalyzer Breathalyzer: 0 Urine Drug Screen - Test Device Lot number: [id number] Expiration date: 09/03/19 - Control Is test valid?: Yes - Results Drug screen NEGATIVE: No Urine drug screen results: FEN-Fentanyl, MOP-Opiates Inpatient Rehab Admission - Rehab Decision to Admit Inpatient rehab admission?: No
[2018-09-25] MEDS ORDERED: ACETAMINOPHEN 325 MG TABLET (FP) PO PRN (20:26)
[2018-09-25] MEDS ORDERED: MAGNESIUM HYDROX 2400MG/30ML ORAL SUSPENSION 30 ML CUP PO PRN (20:26)
[2018-09-25] MEDS ORDERED: MAG HYDROX/AL HYDROX/SIMETH 30 ML UNIT-DOSE CUP PO PRN (20:26)
[2018-09-25] MEDS ORDERED: hydrOXYzine PAMOATE 25 MG CAPSULE (FP) PO PRN (20:26)
[2018-09-25] MEDS ORDERED: BISMUTH SUBSALICYLATE 524 MG/30 ML UD PO PRN (20:26)
[2018-09-25] MEDS ORDERED: MENTHOL/PHENOL 1 EACH UD MM PRN (20:26)
[2018-09-25] MEDS ORDERED: MAGNESIUM CITRATE 300 ML BOTTLE PO PRN (20:26)
[2018-09-25] MEDS ORDERED: ALBUTEROL SO4 8 GM HFA INHALER IH PRN (20:28)
[2018-09-25] MEDS: ACETAMINOPHEN 325 MG TABLET (FP) PO PRN (21:43)
[2018-09-25] MEDS: THIAMINE HCL 100 MG TABLET (FP) PO SCH (21:43)
[2018-09-25] MEDS ORDERED: METHADONE HCL 10 MG TABLET (FOR DETOX USE ONLY) PO ONE (23:00)
[2018-09-25] MEDS: MELATONIN 5 MG TABLETS PO PRN (23:30)
[2018-09-26] MEDS ORDERED: METHADONE HCL 10 MG TABLET (FOR DETOX USE ONLY) PO ONE (10:00)
[2018-09-26] MEDS: cloNIDine HCL 0.1 MG TABLET PO PRN ×2 (10:07→22:05)
[2018-09-26] MEDS: PRENATAL VITAMINS W/ FOLIC ACID TABLET (FP) PO SCH (10:07)
[2018-09-26 10:20] LABS: ALBUMIN 3.4 g/dl (3.4-5.0); ALK PHOS 87 U/L (45-117); ANION GAP 6 MMOL/L (8-16); BILIRUBIN,TOTAL 0.5 mg/dL (0.2-1); BLOOD UREA NITROGEN 13 mg/dL (7-18); CALCIUM 8.9 mg/dL (8.5-10.1); CHLORIDE 104 mmol/L (98-107); CO2 26 mmol/L (21-32); CREATININE 0.7 mg/dL (0.55-1.3); GLUCOSE,RANDOM 85 mg/dL (74-106); POTASSIUM 4.7 mmol/L (3.5-5.1); SGOT/AST 18 U/L (15-37); SGPT/ALT 14 U/L (13-61); SODIUM 136 mmol/L (136-145); TOT PROT 7.9 g/dl (6.4-8.2)
[2018-09-26] MEDS: IBUPROFEN 400 MG TABLET (FP) PO PRN ×3 (10:40→23:50)
[2018-09-26 10:46] LABS: HEMOGLOBIN 14.8 GM/dL (11.7-16.9); MCH 32.2 pg (25.7-33.7); MCHC 33.6 g/dl (32.0-35.9); MEAN CELL VOLUME 95.8 fl (80-96); PLATELET COUNT 247 K/MM3 (134-434); RBC 4.59 M/mm3 (4.00-5.60); RDW 13.6 % (11.9-15.9); WHITE BLOOD COUNT 6.4 K/mm3 (4.0-10.0)
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
[2018-09-26] MEDS: ACETAMINOPHEN 325 MG TABLET (FP) PO PRN ×2 (12:35→22:37)
--- NOTE | 2018-09-26 13:43 | PN ---
BHS COWS - Scale Resting Pulse: 0= SD 80 or Below Sweatin= Chills/Flushing Restless Observation: 0= Sits Still Pupil Size: 0= Normal to Room Light Bone or Joint Aches: 2= Severe Diffuse Aches Runny Nose/ Eye Tearin= None GI Upset > 30mins: 1= Stomach Cramp Tremor Observation of Outstretched Hands: 0= None Yawning Observation: 1= 1-2x During Session Anxiety or Irritability: 2=Irritable/Anxious Goose Flesh Skin: 3=Piloerection COWS Score: 10 BHS Progress Note (SOAP) Subjective: Stomach Cramping, Anxious, Body Aches. Objective: PATIENT A & O X 3, OBSERVED AMBULATING ON UNIT UNASSISTED. IN NO ACUTE DISTRESS. 09/26/18 13:44 Vital Signs Temperature 96.7 F L 09/26/18 13:01 Pulse Rate 60 09/26/18 13:01 Respiratory Rate 18 09/26/18 13:01 Blood Pressure 127/84 09/26/18 13:01 O2 Sat by Pulse Oximetry (%) Laboratory Tests 09/26/18 09/26/18 09/26/18 07:00 07:00 07:00 WBC 6.4 RBC 4.59 Hgb 14.8 Hct 44.0 D MCV 95.8 MCH 32.2 MCHC 33.6 RDW 13.6 Plt Count 247 MPV 10.0 Manual Slide Review Platelet Comment Giant platelets Sodium 136 Potassium 4.7 Chloride 104 Carbon Dioxide 26 Anion Gap 6 L BUN 13 Creatinine 0.7 Creat Clearance w eGFR 119.37 Random Glucose 85 Calcium 8.9 Total Bilirubin 0.5 AST 18 ALT 14 Alkaline Phosphatase 87 Total Protein 7.9 Albumin 3.4 RPR Titer Nonreactive LABS NOTED. Assessment: 09/26/18 13:45 WITHDRAWAL SYMPTOMS. Plan: CONTINUE DETOX. INCREASE DAILY PO FLUID INTAKE. PRN [place] FOR STOMACH UPSET.
[2018-09-26] MEDS: METHOCARBAMOL 500 MG TABLET PO PRN (18:33)
[2018-09-26] MEDS: traZODone HCL 50 MG TABLET (FP) PO SCH (22:02)
[2018-09-26] MEDS: THIAMINE HCL 100 MG TABLET (FP) PO SCH (22:02)
[2018-09-26] MEDS: hydrOXYzine PAMOATE 50 MG CAPSULE (FP) PO PRN (23:50)
[2018-09-27] MEDS: METHOCARBAMOL 500 MG TABLET PO PRN (01:26)
--- NOTE | 2018-09-27 09:50 | PN ---
BHS COWS - Scale Resting Pulse: 0= [place] 80 or Below Sweatin= Chills/Flushing Restless Observation: 0= Sits Still Pupil Size: 1= Pupils >than Normal Bone or Joint Aches: 1= Mild Discomfort Runny Nose/ Eye Tearin= Nasal Congestion GI Upset > 30mins: 1= Stomach Cramp Tremor Observation of Outstretched Hands: 2= Slight Tremor Visible Yawning Observation: 1= 1-2x During Session Anxiety or Irritability: 1=Feels Anxious/Irritable Goose Flesh Skin: 0=Smooth Skin COWS Score: 9 BHS Progress Note (SOAP) Subjective: encourage the patient to bring in own ART medication feeling ok today less body aches Objective: 09/27/18 09:49 Vital Signs Temperature 98.7 F 09/27/18 09:24 Pulse Rate 70 09/27/18 09:24 Respiratory Rate 18 09/27/18 09:24 Blood Pressure 125/82 09/27/18 09:24 O2 Sat by Pulse Oximetry (%) Laboratory Last Values WBC 6.4 K/mm3 (4.0-10.0) 09/26/18 07:00 RBC 4.59 M/mm3 (4.00-5.60) 09/26/18 07:00 Hgb 14.8 GM/dL (11.7-16.9) 09/26/18 07:00 Hct 44.0 % (35.4-49) D 09/26/18 07:00 MCV 95.8 fl (80-96) 09/26/18 07:00 MCH 32.2 pg (25.7-33.7) 09/26/18 07:00 MCHC 33.6 g/dl (32.0-35.9) 09/26/18 07:00 RDW 13.6 % (11.9-15.9) 09/26/18 07:00 Plt Count 247 K/MM3 (134-434) 09/26/18 07:00 MPV 10.0 fl (7.5-11.1) 09/26/18 07:00 Manual Slide Review 09/26/18 07:00 Platelet Comment Giant platelets 09/26/18 07:00 Sodium 136 mmol/L (136-145) 09/26/18 07:00 Potassium 4.7 mmol/L (3.5-5.1) 09/26/18 07:00 Chloride 104 mmol/L (98-107) 09/26/18 07:00 Carbon Dioxide 26 mmol/L (21-32) 09/26/18 07:00 Anion Gap 6 MMOL/L (8-16) L 09/26/18 07:00 BUN 13 mg/dL (7-18) 09/26/18 07:00 Creatinine 0.7 mg/dL (0.55-1.3) 09/26/18 07:00 Creat Clearance w eGFR 119.37 (>60) 09/26/18 07:00 Random Glucose 85 mg/dL (74-106) 09/26/18 07:00 Calcium 8.9 mg/dL (8.5-10.1) 09/26/18 07:00 Total Bilirubin 0.5 mg/dL (0.2-1) 09/26/18 07:00 AST 18 U/L (15-37) 09/26/18 07:00 ALT 14 U/L (13-61) 09/26/18 07:00 Alkaline Phosphatase 87 U/L (45-117) 09/26/18 07:00 Total Protein 7.9 g/dl (6.4-8.2) 09/26/18 07:00 Albumin 3.4 g/dl (3.4-5.0) 09/26/18 07:00 RPR Titer Nonreactive (NONREACTIVE) 09/26/18 07:00 lab noted Assessment: 09/27/18 09:49 opiate withdrawal sx 09/27/18 09:49 Plan: continue detox
[2018-09-27] MEDS ORDERED: METHADONE HCL 10 MG TABLET (FOR DETOX USE ONLY) PO ONE (10:00)
[2018-09-27] MEDS: cloNIDine HCL 0.1 MG TABLET PO PRN (10:04)
[2018-09-27] MEDS: PRENATAL VITAMINS W/ FOLIC ACID TABLET (FP) PO SCH (10:04)
[2018-09-27] MEDS: hydrOXYzine PAMOATE 50 MG CAPSULE (FP) PO PRN ×2 (11:39→20:00)
[2018-09-27] MEDS: IBUPROFEN 400 MG TABLET (FP) PO PRN (16:32)
[2018-09-27] MEDS: MELATONIN 5 MG TABLETS PO PRN (22:02)
[2018-09-27] MEDS: THIAMINE HCL 100 MG TABLET (FP) PO SCH (22:02)
[2018-09-27] MEDS: ACETAMINOPHEN 325 MG TABLET (FP) PO PRN (22:03)
[2018-09-27] MEDS: traZODone HCL 50 MG TABLET (FP) PO SCH (22:04)
[2018-09-28] MEDS: hydrOXYzine PAMOATE 50 MG CAPSULE (FP) PO PRN ×2 (02:06→22:06)
[2018-09-28] MEDS: METHOCARBAMOL 500 MG TABLET PO PRN ×3 (02:06→22:06)
[2018-09-28] MEDS ORDERED: METHADONE HCL 10 MG TABLET (FOR DETOX USE ONLY) PO ONE (10:00)
[2018-09-28] MEDS: PRENATAL VITAMINS W/ FOLIC ACID TABLET (FP) PO SCH (10:10)
--- NOTE | 2018-09-28 13:02 | PN ---
BHS COWS - Scale Resting Pulse: 0= [place] 80 or Below Sweatin= Chills/Flushing Restless Observation: 1= Difficult to Sit Still Pupil Size: 0= Normal to Room Light Bone or Joint Aches: 1= Mild Discomfort Runny Nose/ Eye Tearin= None GI Upset > 30mins: 0= None Tremor Observation of Outstretched Hands: 1= Tremor [place], Not Seen Yawning Observation: 0= None Anxiety or Irritability: 1=Feels Anxious/Irritable Goose Flesh Skin: 0=Smooth Skin COWS Score: 5 BHS Progress Note (SOAP) Subjective: right eye blind wants to go to suboxone program Objective: 09/28/18 13:04 Vital Signs Temperature 97.6 F 09/28/18 09:43 Pulse Rate 66 09/28/18 09:43 Respiratory Rate 18 09/28/18 09:43 Blood Pressure 116/74 09/28/18 09:43 O2 Sat by Pulse Oximetry (%) Laboratory Last Values WBC 6.4 K/mm3 (4.0-10.0) 09/26/18 07:00 RBC 4.59 M/mm3 (4.00-5.60) 09/26/18 07:00 Hgb 14.8 GM/dL (11.7-16.9) 09/26/18 07:00 Hct 44.0 % (35.4-49) D 09/26/18 07:00 MCV 95.8 fl (80-96) 09/26/18 07:00 MCH 32.2 pg (25.7-33.7) 09/26/18 07:00 MCHC 33.6 g/dl (32.0-35.9) 09/26/18 07:00 RDW 13.6 % (11.9-15.9) 09/26/18 07:00 Plt Count 247 K/MM3 (134-434) 09/26/18 07:00 MPV 10.0 fl (7.5-11.1) 09/26/18 07:00 Manual Slide Review 09/26/18 07:00 Platelet Comment Giant platelets 09/26/18 07:00 Sodium 136 mmol/L (136-145) 09/26/18 07:00 Potassium 4.7 mmol/L (3.5-5.1) 09/26/18 07:00 Chloride 104 mmol/L (98-107) 09/26/18 07:00 Carbon Dioxide 26 mmol/L (21-32) 09/26/18 07:00 Anion Gap 6 MMOL/L (8-16) L 09/26/18 07:00 BUN 13 mg/dL (7-18) 09/26/18 07:00 Creatinine 0.7 mg/dL (0.55-1.3) 09/26/18 07:00 Creat Clearance w eGFR 119.37 (>60) 09/26/18 07:00 Random Glucose 85 mg/dL (74-106) 09/26/18 07:00 Calcium 8.9 mg/dL (8.5-10.1) 09/26/18 07:00 Total Bilirubin 0.5 mg/dL (0.2-1) 09/26/18 07:00 AST 18 U/L (15-37) 09/26/18 07:00 ALT 14 U/L (13-61) 09/26/18 07:00 Alkaline Phosphatase 87 U/L (45-117) 09/26/18 07:00 Total Protein 7.9 g/dl (6.4-8.2) 09/26/18 07:00 Albumin 3.4 g/dl (3.4-5.0) 09/26/18 07:00 RPR Titer Nonreactive (NONREACTIVE) 09/26/18 07:00 lab noted Assessment: 09/28/18 13:04 opiate withdrawal sx Plan: continue detox
[2018-09-28] MEDS: IBUPROFEN 400 MG TABLET (FP) PO PRN (19:37)
[2018-09-28] MEDS: ACETAMINOPHEN 325 MG TABLET (FP) PO PRN (21:29)
[2018-09-28] MEDS: THIAMINE HCL 100 MG TABLET (FP) PO SCH (22:04)
[2018-09-28] MEDS: traZODone HCL 50 MG TABLET (FP) PO SCH (22:06)
[2018-09-29] MEDS: hydrOXYzine PAMOATE 50 MG CAPSULE (FP) PO PRN (05:37)
[2018-09-29] MEDS ORDERED: METHADONE HCL 5 MG TABLET (FOR DETOX USE ONLY) PO ONE (06:00)
[2018-09-29 06:12] VITALS: BP 127/77; PULSE 58; TEMP 96.5
--- NOTE | 2018-09-29 18:43 | DS ---
[facility] Detox Discharge Summary Admission Date: 09/25/18 Discharge Date: 09/29/18 - History Present History: Cocaine Dependence, Opioid Dependence Additional Comments: PATIENT REFERRED TO '[facility]ST[facility] USE [facility] ([place], [place]) FOR AFTERCARE. PATIENT WAS DISCHARGED FORM DETOX UNIT IN STABLE MEDICAL CONDITION. 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 - Physical Exam Results Vital Signs: Vital Signs Temperature 96.5 F L 09/29/18 06:11 Pulse Rate 58 L 09/29/18 06:11 Respiratory Rate 18 09/29/18 06:11 Blood Pressure 127/77 09/29/18 06:11 O2 Sat by Pulse Oximetry (%) Pertinent Admission Physical Exam Findings: WITHDRAWAL SYMPTOMS. Laboratory Tests 09/26/18 09/26/18 09/26/18 07:00 07:00 07:00 WBC 6.4 RBC 4.59 Hgb 14.8 Hct 44.0 D MCV 95.8 MCH 32.2 MCHC 33.6 RDW 13.6 Plt Count 247 MPV 10.0 Manual Slide Review Platelet Comment Giant platelets Sodium 136 Potassium 4.7 Chloride 104 Carbon Dioxide 26 Anion Gap 6 L BUN 13 Creatinine 0.7 Creat Clearance w eGFR 119.37 Random Glucose 85 Calcium 8.9 Total Bilirubin 0.5 AST 18 ALT 14 Alkaline Phosphatase 87 Total Protein 7.9 Albumin 3.4 RPR Titer Nonreactive LABS NOTED. - Treatment Hospital Course: Detox Protocol Followed, Detoxed Safely, Responded well, Discharged Condition Good Patient has Accepted a Rehab Referral to: PATIENT REFERRED TO [facility] ([place], [place]) - Medication Discharge Medications: Ambulatory Orders Darunavir/Cobicistat [Prezcobix 800 mg-150 mg Tablet] 1 each PO DAILY #30 tablet 05/23/18 Emtricitabine/Tenofov Alafenam [Descovy 200-25 mg Tablet (Nf)] 1 each PO DAILY # 30 tablet 05/23/18 Albuterol Sulfate Inhaler - [Ventolin HFA Inhaler -] 2 puff IH Q6H PRN #1 inhaler 06/13/18 - Diagnosis (1) Opioid dependence with withdrawal Status: Acute (2) Anxiety Status: Chronic (3) COPD (chronic obstructive pulmonary disease) Status: Chronic Qualifiers: COPD type: unspecified COPD Qualified Code(s): J44.9 - Chronic obstructive pulmonary disease, unspecified (4) Cocaine dependence Status: Chronic Qualifiers: Substance use status: uncomplicated Qualified Code(s): F14.20 - Cocaine dependence, uncomplicated (5) Depression Status: Chronic Qualifiers: Depression Type: unspecified Qualified Code(s): F32.9 - Major depressive disorder, single episode, unspecified (6) HIV (human immunodeficiency virus infection) Status: Chronic Qualifiers: HIV symptom status: unspecified Qualified Code(s): B20 - Human immunodeficiency virus [HIV] disease (7) Hyperthyroidism Status: Chronic (8) legally blind right s/p trauma ands/p corneal transplant pos Status: Chronic (9) Insomnia Status: Chronic Qualifiers: Insomnia type: unspecified Qualified Code(s): G47.00 - Insomnia, unspecified (10) Nicotine dependence Status: Chronic Qualifiers: Nicotine product type: cigarettes Substance use status: uncomplicated Qualified Code(s): F17.210 - Nicotine dependence, cigarettes, uncomplicated (11) Non-compliance Status: Chronic (12) Substance induced mood disorder Status: Chronic - AMA Did Patient Leave Against Medical Advice: No
== END 2018-09-29 09:08 | disposition home or self-care (01) | DRG 773 ==
LOC: YASAS 12:43 → Y3N 20:39
PROVIDERS: ADMIT Surgery; ATTEND Surgery
PROC: HZ2ZZZZ Detoxification Services for Substance Abuse Treatment (ICD-10-PCS; principal; 2018-09-25)
DX: F11.23 Opioid dependence with withdrawal (principal); F14.20 Cocaine dependence, uncomplicated; F17.210 Nicotine dependence, cigarettes, uncomplicated; F19.24 Other psychoactive substance dependence with psychoactive substance-induced mood disorder; F20.9 Schizophrenia, unspecified; F32.9 Major depressive disorder, single episode, unspecified; F41.8 Other specified anxiety disorders; Z21 Asymptomatic human immunodeficiency virus [HIV] infection status; G47.00 Insomnia, unspecified; E05.90 Thyrotoxicosis, unspecified without thyrotoxic crisis or storm; B18.2 Chronic viral hepatitis C; H54.61 Unqualified visual loss, right eye, normal vision left eye; Z94.7 Corneal transplant status
CPT/HCPCS: 36415; 80053; 85027; 86593; J0735

== ENCOUNTER → 2019-02-07 | Outpatient (CLI) | payer OTHER | LOC: YHH 11:59 ==

== ENCOUNTER 2021-02-11 08:41 | Emergency (ER) | payer OTHER ==
[2021-02-11 08:50] VITALS: BP 109/75; PULSE 83; TEMP 98.1; BMI 30.4
== END 2021-02-11 11:52 | disposition home or self-care (01) ==
LOC: JERFT 08:41 → JER 08:41 → JERFT 11:52
DX: S20.212A Contusion of left front wall of thorax, initial encounter (principal); R07.89 Other chest pain; W22.8XXA Striking against or struck by other objects, initial encounter; Y93.02 Activity, running
CPT/HCPCS: 71101-TC-LT-FY; 99283-25

== ENCOUNTER 2021-08-13 11:29 | Emergency (ER) | payer OTHER ==
[2021-08-13 11:39] VITALS: BP 128/78; PULSE 111; TEMP 97.9; BMI 27.0
== END 2021-08-13 12:24 | disposition home or self-care (01) ==
LOC: JER 11:29 → JERFT 11:29
DX: S30.810A Abrasion of lower back and pelvis, initial encounter (principal); W26.8XXA Contact with other sharp object(s), not elsewhere classified, initial encounter
CPT/HCPCS: 99281-25

== ENCOUNTER 2023-05-25 04:24 | Day surgery (SDC) | payer OTHER ==
[2023-05-25 10:31] VITALS: BMI 27.7
[2023-05-25 12:04] VITALS: TEMP 98.6
[2023-05-25 12:44] VITALS: BP 99/62; PULSE 67; RESP 12
== END 2023-05-25 13:42 | disposition home or self-care (01) ==
LOC: JASU-ENDO 04:24
PROVIDERS: ATTEND Internal Medicine Gastroenterology
PROC: 0DBL8ZX Excision of Transverse Colon, Via Natural or Artificial Opening Endoscopic, Diagnostic (ICD-10-PCS; principal; 2023-05-25 08:45)
DX: Z12.11 Encounter for screening for malignant neoplasm of colon (principal); D12.3 Benign neoplasm of transverse colon; K64.8 Other hemorrhoids

== ENCOUNTER 2024-05-10 10:28 | Observation (INO) | payer OTHER ==
[2024-05-10 10:38] VITALS: BMI 29.5
[2024-05-10] MEDS ORDERED: ALBUTEROL SO4 2.5/IPRATROPIUM 0.5 INH SOL 3 ML VIAL.NEB. NEB ONE ×2 (11:09→13:12)
[2024-05-10] MEDS: ALBUTEROL SO4 2.5/IPRATROPIUM 0.5 INH SOL 3 ML VIAL.NEB. NEB ONE ×2 (11:26→13:13)
[2024-05-10 11:47] LABS: EOS % 0.5 % (0-4.5); HEMATOCRIT 45.3 % (35.4-49); HEMOGLOBIN 15.3 GM/dL (11.7-16.9); LYMPH % 30.1 % (8-40); MCH 32.3 pg (25.7-33.7); MCHC 33.8 g/dl (32.0-35.9); MEAN CELL VOLUME 95.6 fl (80-96); MEAN PLT VOLUME 8.1 fl (7.5-11.1); MONO % 7.5 % (3.8-10.2); NEUT % 60.9 % (42.8-82.8); PLATELET COUNT 244 10^3/uL (134-434); RBC 4.74 M/mm3 (4.00-5.60); RDW 12.9 % (11.9-15.9)
[2024-05-10] MEDS ORDERED: AZITHROMYCIN IVPB 500 MG/250 ML BAG IVPB ONE (11:54)
[2024-05-10] MEDS: AZITHROMYCIN IVPB 500 MG in DEXTROSE 5%-WATER - 250 ML IVPB ONE (12:05)
[2024-05-10 12:15] LABS: POTASSIUM 4.7 mmol/L (3.5-5.1)
[2024-05-10 12:17] LABS: CALCIUM 8.9 mg/dL (8.5-10.1)
[2024-05-10 12:18] LABS: ALBUMIN 3.9 g/dl (3.4-5.0); BLOOD UREA NITROGEN 20.9 mg/dL (7-18)
[2024-05-10 12:22] LABS: BILIRUBIN,TOTAL 0.9 mg/dL (0.2-1); TOT PROT 7.7 g/dl (6.4-8.2)
[2024-05-10] MEDS ORDERED: predniSONE 20 MG TABLET (UD) ONE (13:12)
[2024-05-10] MEDS: predniSONE 20 MG TABLET (UD) PO ONE (13:13)
[2024-05-10] MEDS ORDERED: methylPREDNISolone NA SUCC 125 MG/2 ML VIAL ONE (13:42)
[2024-05-10] MEDS: methylPREDNISolone NA SUCC 125 MG/2 ML VIAL IVPB ONE (13:43)
[2024-05-10] MEDS: ENOXAPARIN NA (PORCINE) 40 MG/0.4 ML DISP.SYRIN SQ SCH (15:37)
[2024-05-10] MEDS: ALBUTEROL SO4 2.5/IPRATROPIUM 0.5 INH SOL 3 ML VIAL.NEB. NEB SCH (16:29)
[2024-05-10] MEDS: SODIUM CHLORIDE 1,000 ML IV SCH (17:09)
[2024-05-10] MEDS: methylPREDNISolone NA SUCC 40 MG/1 ML VIAL IVPUSH SCH (21:56)
[2024-05-11 10:13] LABS: ALBUMIN 3.8 g/dl (3.4-5.0); PHOSPHOROUS 2.7 mg/dL (2.5-4.9); POTASSIUM 4.3 mmol/L (3.5-5.1)
[2024-05-11 10:14] LABS: BILIRUBIN,TOTAL 1.1 mg/dL (0.2-1); TOT PROT 7.9 g/dl (6.4-8.2)
[2024-05-11] MEDS ORDERED: ALBUTEROL SO4 0.083% IH SOL 2.5 MG/3 ML VIAL.NEB. NEB PRN (15:35)
[2024-05-11] MEDS ORDERED: LIDOCAINE 5% TOPICAL PATCH TP PRN (15:35)
[2024-05-11] MEDS ORDERED: LORATADINE 10 MG TABLET PO PRN (15:45)
[2024-05-11] MEDS: BUPRENORPHINE/NALOXONE 8 MG/2 MG FILM PACKET SL ONE (15:54)
[2024-05-11] MEDS: ARIPiprazole 10 MG TABLET PO SCH (18:06)
[2024-05-11] MEDS: LIDOCAINE PATCH REMOVAL MC SCH (21:24)
[2024-05-11] MEDS: MIRTAZAPINE 30 MG TABLET PO SCH (21:27)
[2024-05-11] MEDS: BUPRENORPHINE/NALOXONE 8 MG/2 MG FILM PACKET SL SCH (21:27)
[2024-05-11] MEDS: ATORVASTATIN CA 10 MG TABLET (FP) PO SCH (21:27)
[2024-05-12] MEDS: BICTEGRAV/EMTRICIT/TENOFOV (BIKTARVY) 50-200-25 MG TABLET PO SCH (08:53)
[2024-05-12] MEDS: TAMSULOSIN HCL 0.4 MG CAP PO SCH (08:53)
[2024-05-12] MEDS: CHOLECALCIFEROL (VIT D3) 1,000 UNIT (25 MCG) TABLET PO SCH (09:41)
[2024-05-12] MEDS: PANTOPRAZOLE 40 MG TABLET PO SCH (09:41)
[2024-05-12] MEDS: predniSONE 20 MG TABLET (UD) PO SCH (09:41)
[2024-05-12] MEDS: FLUTICASONE PROP 0.05% 16 GM NASAL SPRAY NS SCH (14:16)
[2024-05-13 10:13] VITALS: RESP 18
[2024-05-13 10:22] LABS: BASO % 0.6 % (0-2.0); EOS % 1.3 % (0-4.5); HEMATOCRIT 42.8 % (35.4-49); HEMOGLOBIN 14.1 GM/dL (11.7-16.9); LYMPH % 29.6 % (8-40); MCH 32.2 pg (25.7-33.7); MCHC 32.9 g/dl (32.0-35.9); MEAN CELL VOLUME 97.8 fl (80-96); MEAN PLT VOLUME 8.3 fl (7.5-11.1); MONO % 6.4 % (3.8-10.2); NEUT % 62.1 % (42.8-82.8); PLATELET COUNT 219 10^3/uL (134-434); RBC 4.37 M/mm3 (4.00-5.60); WHITE BLOOD COUNT 11.1 K/mm3 (4.0-10.0)
[2024-05-13 10:38] LABS: POTASSIUM 3.5 mmol/L (3.5-5.1)
[2024-05-13 10:40] LABS: BLOOD UREA NITROGEN 20.4 mg/dL (7-18); CALCIUM 8.6 mg/dL (8.5-10.1)
[2024-05-13 10:44] LABS: CREATININE 1.2 mg/dL (0.55-1.3)
[2024-05-14 08:38] LABS: BASO % 0.2 % (0-2.0); EOS % 1.2 % (0-4.5); HEMATOCRIT 46.5 % (35.4-49); HEMOGLOBIN 15.6 GM/dL (11.7-16.9); LYMPH % 23.6 % (8-40); MCH 32.2 pg (25.7-33.7); MCHC 33.5 g/dl (32.0-35.9); MEAN CELL VOLUME 96.2 fl (80-96); MEAN PLT VOLUME 8.1 fl (7.5-11.1); MONO % 6.5 % (3.8-10.2); NEUT % 68.5 % (42.8-82.8); PLATELET COUNT 246 10^3/uL (134-434); RBC 4.83 M/mm3 (4.00-5.60); RDW 13.1 % (11.9-15.9); WHITE BLOOD COUNT 13.9 K/mm3 (4.0-10.0)
[2024-05-14 09:06] LABS: CALCIUM 9.3 mg/dL (8.5-10.1)
[2024-05-14 09:07] LABS: BLOOD UREA NITROGEN 18.1 mg/dL (7-18)
[2024-05-14 09:09] VITALS: BP 119/78; PULSE 77; TEMP 97.7
[2024-05-14 09:11] LABS: CREATININE 1.1 mg/dL (0.55-1.3)
== END 2024-05-14 11:17 | disposition home or self-care (01) ==
LOC: JER 10:28 → JERBED 13:13 → J5S 14:45
PROVIDERS: ADMIT Internal Medicine
PROC: 3E03329 Introduction of Other Anti-infective into Peripheral Vein, Percutaneous Approach (ICD-10-PCS; principal; 2024-05-10)
PROC: 3E0337Z Introduction of Electrolytic and Water Balance Substance into Peripheral Vein, Percutaneous Approach (ICD-10-PCS; 2024-05-10)
PROC: 3E013GC Introduction of Other Therapeutic Substance into Subcutaneous Tissue, Percutaneous Approach (ICD-10-PCS; 2024-05-10)
PROC: 3E0F7SF Introduction of Other Gas into Respiratory Tract, Via Natural or Artificial Opening (ICD-10-PCS; 2024-05-10)
DX: J44.1 Chronic obstructive pulmonary disease with (acute) exacerbation (principal); J96.01 Acute respiratory failure with hypoxia; J40 Bronchitis, not specified as acute or chronic; J06.9 Acute upper respiratory infection, unspecified; F11.20 Opioid dependence, uncomplicated; F20.0 Paranoid schizophrenia; Z21 Asymptomatic human immunodeficiency virus [HIV] infection status; K21.9 Gastro-esophageal reflux disease without esophagitis; Z87.891 Personal history of nicotine dependence
CPT/HCPCS: 0241U-QW; 36415; 71045-TC-FY; 80048; 80053; 83735; 84100; 85025; 93005; 93010; 94640; 96365; 96372; 96375; 96376; 99285-25; G0378